=== PATIENT | male | born 1975 | race Caucasian/White ===

== ENCOUNTER 2021-10-22 08:29 | Emergency (ER) | payer OTHER ==
[2021-10-22 09:13] LABS: Absolute Neutrophil Ct (ANC) 6.42 x10^3/uL (1.4-6.9); Basophil (Absolute #) 0.06 x10^3/uL (0-0.4); Eosinophil % 0.8 % (0.00-5.0); Eosinophil (Absolute #) 0.07 x10^3/uL (0-0.5); Hematocrit 48.5 % (42-50); Hemoglobin 16.1 g/dL (12.5-18.0); Lymphocyte (Absolute #) 1.59 x10^3/uL (1.0-4.6); Lymphocytes % 18.4 % (24.0-44.0); Mean Cell Volume 89.2 fL (78-100); Mean Corpuscular Hemoglobin 29.6 pg (26-32); Mean Corpuscular Hgb Concent. 33.2 g/dL (32-36); Mean Platelet Volume 9.8 fL (7.5-11.0); Monocyte (Absolute #) 0.48 x10^3/uL (0.0-1.3); Monocytes % 5.5 % (0.0-12.0); Neutrophil % 74.3 % (36.0-66.0); Platelet Count 328 x10^3/uL (150-450); Red Blood Count 5.44 x10^6/uL (4.1-5.6); Red Cell Distribution Width 12.7 % (11.5-14.0); White Blood Count 8.7 x10^3/uL (4.0-10.5)
[2021-10-22 09:38] LABS: ALBUMIN 4.6 g/dL (3.5-5.0); ALKALINE PHOSPHATASE 100 U/L (38-126); BLOOD UREA NITROGEN 15 mg/dL (9-20); CHLORIDE 103 mmol/L (98-107); Calcium 9.9 mg/dL (8.4-10.2); Carbon Dioxide 27 mmol/L (22-30); EST GLOMERULAR FILTRATION RATE > 60.0 ML/MIN; Glucose 103 mg/dL (74-106); NT PRO BNP 33.3 pg/mL (0-450); Potassium 4.4 mmol/L (3.5-5.1); SGOT/AST 115 U/L (17-59); SGPT/ALT 71 U/L (0-50); SODIUM 140 mmol/L (137-145); Total Protein 8.4 g/dL (6.3-8.2)
--- NOTE | 2021-10-22 09:44 | XRAY ---
Indication: Syncope with right head injury. Multiple contiguous axial images obtained through the head without contrast. Comparison: None Normal appearing brain parenchyma, ventricles, and bony calvarium. Visualized paranasal sinuses and mastoid air cells are clear. Impression: Normal CT head without contrast exam.
--- NOTE | 2021-10-22 09:44 | XRAY ---
Indication: Syncope. Comparison: February 23, 2015 Portable apical lordotic chest hyperinflated and clear with a few new tiny calcified granulomas. Heart not enlarged. Bony thorax intact. Impression: Nonacute hyperinflated chest with old granulomatous disease.
--- NOTE | 2021-10-22 10:00 | ERPHSYRPT ---
- History of Present Illness Source: patient, other (Mother) Exam Limitations: no limitations Patient Subjective Stated Complaint: pt has had 3 syncope episodes this week with the latest being this morning, the episodes began after a change in hisAripiprazoin medication being increased, pt is concerned about his head due to hitting it so many times this time Triage Nursing Assessment: Pt brought to the ER by his mother, vitals wnl, rates head pain as 3 as long as he doesn't touch it, no lumps or bruising noted on head, denies having any other injuries that has led up to the episodes, pulses normal, skin n/w/d, smokes marijuana daily, recovering opiate addict Physician History: 46 yo wm w syncopal episode x 3 over the last week. Pt states that Abilify was increased from 5mg qhs to 10mg qhs 1 week ago also. He had a syncopal episode while letting dog back in the house. Pt denies any symptoms before the episode and is currently alert and oriented x3 w a GCS of 15. He has a mild R parietal RAZA and mild R hip pain. Dyspnea/N/V/chest pain/cough/melena/hematochezia/fever all denied. He does occ smoke marijuana but denies other drug use. Witnessed: by family Prior Episodes: single episode today (3 episodes in last week) Timing/Duration: today Precipitating Factors: none Context: standing Loss of Consciousness: brief (seconds) Charcter of event(s): collapsed, became unresponsive Allergies/Adverse Reactions: Penicillins Allergy (Mild, Verified 10/22/21 09:12) codeine Allergy (Verified 10/22/21 09:12) Home Medications: Aripiprazole 10 mg [Abilify 10 MG] 10 mg PO HS 10/22/21 [History] Tamsulosin HCl 0.4 mg [Flomax 0.4 MG] 0.4 mg PO DAILY 10/22/21 [History] Venlafaxine HCl [Venlafaxine HCl ER] 150 mg PO QAM 10/22/21 [History] Hx Tetanus, Diphtheria Vaccination/Date Given: Yes Hx Influenza Vaccination/Date Given: No Hx Pneumococcal Vaccination/Date Given: No Travel Risk - International Travel Have you traveled outside of the country in past 3 weeks: No - Coronavirus Screening Are you exhibiting any of the following symptoms?: No Close contact with a COVID-19 positive Pt in past 14-21 Days: No - Vaccine Status Have you recieved a Covid-19 vaccination: Yes 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: [employer] - Past Medical History Pertinent Past Medical History: Yes Neurological History: No Pertinent History ENT History: No Pertinent History Cardiac History: No Pertinent History Respiratory History: No Pertinent History Endocrine Medical History: No Pertinent History Musculoskeletal History: Other GI Medical History: No Pertinent History History: No Pertinent History Psycho-Social History: Anxiety, Depression Male Reproductive Disorders: No Pertinent History Other Medical History: SCIATIC NERVE PAIN - Past Surgical History Past Surgical History: Yes Neuro Surgical History: No Pertinent History Cardiac: No Pertinent History Respiratory: No Pertinent History Gastrointestinal: No Pertinent History Genitourinary: No Pertinent History Musculoskeletal: No Pertinent History Male Surgical History: No Pertinent History Other Surgical History: back, hip, rt knee - Social History Smoking Status: Current every day smoker How long have you smoked: 10 yrs Exposure to second hand smoke: Yes Drug Use: marijuana Patient Lives Alone: Yes Significant Family History: no pertinent family hx - Review of Systems Constitutional: No Symptoms Eyes: No Symptoms Ears, Nose, & Throat: No Symptoms Respiratory: No Symptoms Cardiac: No Symptoms Abdominal/Gastrointestinal: No Symptoms Genitourinary Symptoms: No Symptoms Musculoskeletal: No Symptoms Skin: Skin Lesions Neurological: No Symptoms, Headache Psychological: Drug Abuse (Marijuana) Endocrine: No Symptoms Hematologic/Lymphatic: No Symptoms Immunological/Allergic: No Symptoms Physical Exam - Nursing Vital Signs Nursing Vital Signs: Initial Vital Signs Temperature 97.8 F 10/22/21 08:43 Pulse Rate 70 10/22/21 08:43 Respiratory Rate 12 10/22/21 08:43 Blood Pressure 138/86 10/22/21 08:43 O2 Sat by Pulse Oximetry 98 10/22/21 08:43 Pain Scale Pain Intensity 3 Borderline hypertensive - [place] Coma Scale Best Eye Response (Daryl): (4) open spontaneously Best Verbal Response (Daryl): (5) oriented Best Motor Response ([place]): (6) obeys commands Daryl Total: 15 - Physical Exam General Appearance: no apparent distress Eye Exam: bilateral eye: normal inspection, PERRL, EOMI Ears, Nose, Throat Exam: normal ENT inspection, TMs normal, pharynx normal, moist mucous membranes Neck Exam: normal inspection, non-tender, supple, full range of motion, No meningismus, No mass, No Brudzinski, No Kernig's, No carotid bruit Respiratory: normal breath sounds, lungs clear, airway intact, No chest tenderness, No respiratory distress Cardiovascular: regular rate/rhythm, normal heart sounds, normal peripheral pulses, capillary refill <2 sec, No murmur Gastrointestinal: soft, normal bowel sounds, No tenderness Back Exam: normal inspection, normal range of motion, No CVA tenderness, No vertebral tenderness, No rash Extremity Exam: other (Mild R hip TTP) Peripheral Pulses: carotid (R): 2+, carotid (L): 2+ Mental Status: alert, oriented x 3, 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 Exam: normal hearing, normal speech, PERRL, No abnormal eye position, No abnormal gag reflex Coordination/Gait: normal finger to nose, normal gait, normal cerebellar function, negative Romberg's sign Motor/Sensory: no motor deficit, no sensory deficit, no pronator drift, negative Babinski's sign, No pronator drift (R), No pronator drift (L) DTR: bicep (R): 2+, bicep (L): 2+ Skin Exam: normal color, warm, dry, No rash SpO2 Interpretation: normal SpO2: 98 O2 Delivery: Room Air - Course Nursing assessment & vital signs reviewed: Yes EKG Interpreted by Me: RATE (NSR/Rate73/Normal QT-QTc/Tall T waves/No ac) - Radiology Exams Chest X-ray Interpretation: Discussed w/ radiologist (CXR neg per Rad) Pelvis X-ray Interpretation: Discussed w/ radiologist (Pelvis neg per Rad) - CT Exams Head CT Interpretation: Discussed w/radiologist (CT head neg) Ordered Tests: Active Orders 24 hr Category Date Time Status EKG-ER Only STAT Care 10/22/21 08:42 Completed CHEST 1 VIEW (PORTABLE) Stat Exams 10/22/21 09:26 Completed HEAD WITHOUT CONTRAST [CT] Stat Exams 10/22/21 08:44 Completed PELVIS (1 OR 2 VIEWS) Stat Exams 10/22/21 10:06 Completed CBC W DIFF Stat Lab 10/22/21 09:11 Completed CMP Stat Lab 10/22/21 09:11 Completed D-DIMER QUANTITATIVE Stat Lab 10/22/21 09:11 Completed NT PRO BNP Stat Lab 10/22/21 09:11 Completed PROTIME WITH INR Stat Lab 10/22/21 09:11 Completed PTT Stat Lab 10/22/21 09:11 Completed TROPONIN Q4H Lab 10/22/21 09:11 Completed TROPONIN Stat Lab 10/22/21 11:18 Completed UA W/RFX CULTURE Stat Lab 10/22/21 10:00 Completed Urine Triage Profile Stat Lab 10/22/21 10:00 Completed Lab/Rad Data: Laboratory Result Diagrams 10/22/21 09:11 10/22/21 09:11 Laboratory Results 10/22/21 10/22/21 10/22/21 Range/Units 11:18 10:40 10:00 WBC (4.0-10.5) x10^3/uL RBC (4.1-5.6) x10^6/uL Hgb (12.5-18.0) g/dL Hct (42-50) % MCV (78-100) fL MCH (26-32) pg MCHC (32-36) g/dL RDW (11.5-14.0) % Plt Count (150-450) x10^3/uL MPV (7.5-11.0) fL Gran % (36.0-66.0) % Immature Gran % (Auto) (0.00-0.4) % Nucleat RBC Rel Count (0.00-0.1) % Eos # (Auto) (0-0.5) x10^3/uL Immature Gran # (Auto) (0.00-0.03) x10^3u/L Absolute Lymphs (auto) (1.0-4.6) x10^3/uL Absolute Monos (auto) (0.0-1.3) x10^3/uL Absolute Nucleated RBC (0.00-0.01) x10^3u/L Lymphocytes % (24.0-44.0) % Monocytes % (0.0-12.0) % Eosinophils % (0.00-5.0) % Basophils % (0.0-0.4) % Absolute Granulocytes (1.4-6.9) x10^3/uL Basophils # (0-0.4) x10^3/uL D-Dimer (0.0-0.50) mg/L Sodium (137-145) mmol/L Potassium (3.5-5.1) mmol/L Chloride (98-107) mmol/L Carbon Dioxide (22-30) mmol/L Anion Gap (5-15) MEQ/L BUN (9-20) mg/dL Creatinine (0.66-1.25) mg/dL Estimated GFR ML/MIN Glucose (74-106) mg/dL Calcium (8.4-10.2) mg/dL Total Bilirubin (0.2-1.3) mg/dL AST (17-59) U/L ALT (0-50) U/L Alkaline Phosphatase (38-126) U/L Troponin I < 0.012 (0.000-0.034) ng/mL NT-Pro-B Natriuret Pep (0-450) pg/mL Serum Total Protein (6.3-8.2) g/dL Albumin (3.5-5.0) g/dL Urinalys Dipstick Clnc MAIN LAB Urine Color YELLOW (YELLOW) Urine Appearance CLEAR (CLEAR) Urine pH 6.0 (5-6) Ur Specific [place] 1.0120 (1.005-1.025) POC Urine Protein Conf NEGATIVE (Negative) Urine Ketones NEGATIVE (NEGATIVE) Urine Nitrite NEGATIVE (NEGATIVE) Urine Bilirubin NEGATIVE (NEGATIVE) Urine Urobilinogen NORMAL (0-1) mg/dL Urine Leukocytes NEGATIVE (NEGATIVE) Urine WBC (Auto) NONE (0-5) /HPF Urine RBC (Auto) NONE SEEN (0-2) /HPF U Epithel Cells (Auto) NONE (FEW) /HPF Urine Bacteria (Auto) NONE SEEN (NEGATIVE) /HPF Urine RBC NEGATIVE (0-5) Nic/ul Urine Mucus (Auto) SLIGHT (NEGATIVE) /HPF Ur Culture Indicated? NO Urine Glucose NEGATIVE (NEGATIVE) mg/dL Urine Opiates Level (NEGATIVE) Ur Methadone (NEGATIVE) Urine Barbiturates (NEGATIVE) Ur Phencyclidine (PCP) (NEGATIVE) Urine Amphetamine (NEGATIVE) U Benzodiazepine Level (NEGATIVE) Urine Marijuana (THC) (NEGATIVE) Influenza Type A Ag NEGATIVE (NEGATIVE) Influenza Type B Ag NEGATIVE (NEGATIVE) RSV (PCR) NEGATIVE (Negative) SARS-CoV-2 (PCR) NEGATIVE (NEGATIVE) 10/22/21 10/22/21 10/22/21 Range/Units 10:00 09:11 09:11 WBC (4.0-10.5) x10^3/uL RBC (4.1-5.6) x10^6/uL Hgb (12.5-18.0) g/dL Hct (42-50) % MCV (78-100) fL MCH (26-32) pg MCHC (32-36) g/dL RDW (11.5-14.0) % Plt Count (150-450) x10^3/uL MPV (7.5-11.0) fL Gran % (36.0-66.0) % Immature Gran % (Auto) (0.00-0.4) % Nucleat RBC Rel Count (0.00-0.1) % Eos # (Auto) (0-0.5) x10^3/uL Immature Gran # (Auto) (0.00-0.03) x10^3u/L Absolute Lymphs (auto) (1.0-4.6) x10^3/uL Absolute Monos (auto) (0.0-1.3) x10^3/uL Absolute Nucleated RBC (0.00-0.01) x10^3u/L Lymphocytes % (24.0-44.0) % Monocytes % (0.0-12.0) % Eosinophils % (0.00-5.0) % Basophils % (0.0-0.4) % Absolute Granulocytes (1.4-6.9) x10^3/uL Basophils # (0-0.4) x10^3/uL D-Dimer (0.0-0.50) mg/L Sodium (137-145) mmol/L Potassium (3.5-5.1) mmol/L Chloride (98-107) mmol/L Carbon Dioxide (22-30) mmol/L Anion Gap (5-15) MEQ/L BUN (9-20) mg/dL Creatinine (0.66-1.25) mg/dL Estimated GFR ML/MIN Glucose (74-106) mg/dL Calcium (8.4-10.2) mg/dL Total Bilirubin (0.2-1.3) mg/dL AST (17-59) U/L ALT (0-50) U/L Alkaline Phosphatase (38-126) U/L Troponin I < 0.012 (0.000-0.034) ng/mL NT-Pro-B Natriuret Pep (0-450) pg/mL Serum Total Protein (6.3-8.2) g/dL Albumin (3.5-5.0) g/dL Urinalys Dipstick Clnc Urine Color (YELLOW) Urine Appearance (CLEAR) Urine pH (5-6) Ur Specific [place] (1.005-1.025) POC Urine Protein Conf (Negative) Urine Ketones (NEGATIVE) Urine Nitrite (NEGATIVE) Urine Bilirubin (NEGATIVE) Urine Urobilinogen (0-1) mg/dL Urine Leukocytes (NEGATIVE) Urine WBC (Auto) (0-5) /HPF Urine RBC (Auto) (0-2) /HPF U Epithel Cells (Auto) (FEW) /HPF Urine Bacteria (Auto) (NEGATIVE) /HPF Urine RBC (0-5) Nic/ul Urine Mucus (Auto) (NEGATIVE) /HPF Ur Culture Indicated? Urine Glucose (NEGATIVE) mg/dL Urine Opiates Level NEGATIVE (NEGATIVE) Ur Methadone NEGATIVE (NEGATIVE) Urine Barbiturates NEGATIVE (NEGATIVE) Ur Phencyclidine (PCP) NEGATIVE (NEGATIVE) Urine Amphetamine NEGATIVE (NEGATIVE) U Benzodiazepine Level NEGATIVE (NEGATIVE) Urine Marijuana (THC) POSITIVE (NEGATIVE) Influenza Type A Ag (NEGATIVE) Influenza Type B Ag (NEGATIVE) RSV (PCR) (Negative) SARS-CoV-2 (PCR) (NEGATIVE) 10/22/21 10/22/21 Range/Units 09:11 09:11 WBC 8.7 (4.0-10.5) x10^3/uL RBC 5.44 (4.1-5.6) x10^6/uL Hgb 16.1 (12.5-18.0) g/dL Hct 48.5 (42-50) % MCV 89.2 (78-100) fL MCH 29.6 (26-32) pg MCHC 33.2 (32-36) g/dL RDW 12.7 (11.5-14.0) % Plt Count 328 (150-450) x10^3/uL MPV 9.8 (7.5-11.0) fL Gran % 74.3 H (36.0-66.0) % Immature Gran % (Auto) 0.3 (0.00-0.4) % Nucleat RBC Rel Count 0.0 (0.00-0.1) % Eos # (Auto) 0.07 (0-0.5) x10^3/uL Immature Gran # (Auto) 0.03 (0.00-0.03) x10^3u/L Absolute Lymphs (auto) 1.59 (1.0-4.6) x10^3/uL Absolute Monos (auto) 0.48 (0.0-1.3) x10^3/uL Absolute Nucleated RBC 0.00 (0.00-0.01) x10^3u/L Lymphocytes % 18.4 L (24.0-44.0) % Monocytes % 5.5 (0.0-12.0) % Eosinophils % 0.8 (0.00-5.0) % Basophils % 0.7 (0.0-0.4) % Absolute Granulocytes 6.42 (1.4-6.9) x10^3/uL Basophils # 0.06 (0-0.4) x10^3/uL D-Dimer (0.0-0.50) mg/L Sodium 140 (137-145) mmol/L Potassium 4.4 (3.5-5.1) mmol/L Chloride 103 (98-107) mmol/L Carbon Dioxide 27 (22-30) mmol/L Anion Gap 14.0 (5-15) MEQ/L BUN 15 (9-20) mg/dL Creatinine 0.90 (0.66-1.25) mg/dL Estimated GFR > 60.0 ML/MIN Glucose 103 (74-106) mg/dL Calcium 9.9 (8.4-10.2) mg/dL Total Bilirubin 1.70 H (0.2-1.3) mg/dL AST 115 H (17-59) U/L ALT 71 H (0-50) U/L Alkaline Phosphatase 100 (38-126) U/L Troponin I (0.000-0.034) ng/mL NT-Pro-B Natriuret Pep 33.3 (0-450) pg/mL Serum Total Protein 8.4 H (6.3-8.2) g/dL Albumin 4.6 (3.5-5.0) g/dL Urinalys Dipstick Clnc Urine Color (YELLOW) Urine Appearance (CLEAR) Urine pH (5-6) Ur Specific [place] (1.005-1.025) POC Urine Protein Conf (Negative) Urine Ketones (NEGATIVE) Urine Nitrite (NEGATIVE) Urine Bilirubin (NEGATIVE) Urine Urobilinogen (0-1) mg/dL Urine Leukocytes (NEGATIVE) Urine WBC (Auto) (0-5) /HPF Urine RBC (Auto) (0-2) /HPF U Epithel Cells (Auto) (FEW) /HPF Urine Bacteria (Auto) (NEGATIVE) /HPF Urine RBC (0-5) Nic/ul Urine Mucus (Auto) (NEGATIVE) /HPF Ur Culture Indicated? Urine Glucose (NEGATIVE) mg/dL Urine Opiates Level (NEGATIVE) Ur Methadone (NEGATIVE) Urine Barbiturates (NEGATIVE) Ur Phencyclidine (PCP) (NEGATIVE) Urine Amphetamine (NEGATIVE) U Benzodiazepine Level (NEGATIVE) Urine Marijuana (THC) (NEGATIVE) Influenza Type A Ag (NEGATIVE) Influenza Type B Ag (NEGATIVE) RSV (PCR) (Negative) SARS-CoV-2 (PCR) (NEGATIVE) - Progress Progress: improved Progress Note: 10/22/21 12:[address] Turner-wants to send home and wants to keep Abilify dose at 10mg. 10/23/21 00:53 Pt wo syncope/ectopy/focal weakness/altered mental status during entire ER visit Counseled pt/family regarding: lab results, diagnosis, need for follow-up, rad results - Departure Departure Disposition: Home Clinical Impression: Syncope Condition: Stable Critical Care Time: No Referrals: DASHAWN TURNER MD [Primary Care Provider] - Follow up/PCP as directed Instructions: Syncope (Fainting) (DC) Additional Instructions: Follow up with Dr. Turner in 1-2 days Continue with current Abilify dose
--- NOTE | 2021-10-22 10:13 | XRAY ---
Indication: Right hip pain following fall. Comparison: None Single AP pelvis demonstrates normal bones, articulation, and soft tissues.
[2021-10-22 10:19] LABS: Mucus SLIGHT /HPF (NEGATIVE)
[2021-10-22 10:20] LABS: Appearance CLEAR (CLEAR); Bilirubin NEGATIVE (NEGATIVE); Glucose NEGATIVE (NEGATIVE); Ketones NEGATIVE (NEGATIVE); Nitrite NEGATIVE (NEGATIVE); Protein,Urine Dip NEGATIVE (Negative); RBC NEGATIVE Ery/ul (0-5); Urobilinogen NORMAL mg/dL (0-1)
[2021-10-22 10:21] LABS: Bacteria NONE SEEN /HPF (NEGATIVE); RBC NONE SEEN /HPF (0-2); Urine Cultured Indicated? NO
[2021-10-22 10:54] LABS: Dipstick done @ ? MAIN LAB
[2021-10-22 10:56] LABS: Amphetamine,Urine NEGATIVE (NEGATIVE); Barbiturate,Urine NEGATIVE (NEGATIVE); Benzodiazepine,Urine NEGATIVE (NEGATIVE); Methadone,Urine NEGATIVE (NEGATIVE); Opiate,Urine NEGATIVE (NEGATIVE); THC,Urine POSITIVE (NEGATIVE)
[2021-10-22 11:00] LABS: PCP,Urine NEGATIVE (NEGATIVE)
[2021-10-22 11:21] LABS: INFLUENZA A NEGATIVE (NEGATIVE); INFLUENZA B NEGATIVE (NEGATIVE); RESPIRATORY SYNCTIAL VIRUS NEGATIVE (Negative); SARS-CoV-2 Xpert Express NEGATIVE (NEGATIVE)
[2021-10-22 12:36] VITALS: BP 140/86; PULSE 80
[2021-10-23 00:55] VITALS: O2SAT 98
== END 2021-10-22 12:36 | disposition home or self-care (01) ==
LOC: ED 08:29
DX: R55 Syncope and collapse (principal); R51.9 Headache, unspecified; M25.551 Pain in right hip; Z72.0 Tobacco use; Z79.899 Other long term (current) drug therapy
CPT/HCPCS: 0241U; 36000; 36415; 70450; 71045; 72170; 80053; 80074; 80307; 81015; 83880; 84484; 85025; 85379; 85610; 85730; 93005; 99284

== ENCOUNTER 2022-07-08 11:46 | Emergency (ER) | payer OTHER ==
[2022-07-08] MEDS ORDERED: Sodium Chloride 0.9% 1000 ML 1,000 ML IV STA (12:02)
--- NOTE | 2022-07-08 12:02 | ERPHSYRPT ---
- History of Present Illness Time Seen by Provider: 07/08/22 12:00 Source: patient Exam Limitations: no limitations Patient Subjective Stated Complaint: Sycope Triage Nursing Assessment: Patient ambulated back to ED accompanied per [facility] staff. Patient A+O X3. Patient's skin pink, warm and dry. Patient complains of having syncopal episodes since this past Friday. Patient [facility] into [facility] and usually takes Klonopin 0.5mg BID. Patient is unable to have Klonopin in [facility]. Patient states today his eyes started moving real fast then he felt like he was going to pass out. Patient denies pain or discomfort. Patient complains of dizziness. Physician History: This is a 46-year-old white male resident of local [facility] who was brought into the [facility] on 07/01/[facility]22. Since that time he has not been on his Klonopin medication. Patient states that he takes Klonopin 0.5 mg orally twice a day. He states he has had several "near syncopal episodes". Patient does have a history of anxiety and depression. Today, he states his eyes were moving back and forth very rapidly. He also felt that he was "going to pass out". Patient denies chest pain. He denies shortness of breath. He does have dizziness. He does not have abdominal pain. He said no nausea vomiting or diarrhea. He has not had fevers. Timing/Duration: day(s) (Symptoms worsening over several days), worse (To mod erate) Severity: mild Character of Deficits: none Deficits: no difficulties Baseline/Normal Cognition: alert oriented x 3 Current Cognition: alert oriented x 3 Baseline Gait: walks w/o assistance Associated Symptoms: other ([place] as though he was going to pass out), No loss of consciousness, No nausea, No vomiting, No seizures, No chest pain, No headache Allergies/Adverse Reactions: Penicillins Allergy (Mild, Verified 07/08/22 11:47) codeine Allergy (Verified 07/08/22 11:47) Home Medications: Venlafaxine HCl [Venlafaxine HCl ER] 150 mg PO QAM 10/22/21 [History] Nortriptyline HCl [Pamelor] 1 tab PO DAILY 07/08/22 [History] Hx Tetanus, Diphtheria Vaccination/Date Given: Yes Hx Influenza Vaccination/Date Given: No Hx Pneumococcal Vaccination/Date Given: No Immunizations Up to Date: Yes Travel Risk - International Travel Have you traveled outside of the country in past 3 weeks: No - Coronavirus Screening Are you exhibiting any of the following symptoms?: No Close contact with a COVID-19 positive Pt in past 14-21 Days: No - Vaccine Status Have you recieved a Covid-19 vaccination: 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[employer] - Review of Systems Constitutional: No Symptoms Eyes: No Symptoms Ears, Nose, & Throat: No Symptoms Respiratory: No Symptoms Cardiac: No Symptoms Abdominal/Gastrointestinal: No Symptoms Genitourinary Symptoms: No Symptoms Musculoskeletal: No Symptoms Neurological: Dizziness Psychological: Anxiety, Depression Endocrine: No Symptoms Hematologic/Lymphatic: No Symptoms Immunological/Allergic: No Symptoms All Other Systems: Reviewed and Negative - Past Medical History Pertinent Past Medical History: Yes Neurological History: No Pertinent History ENT History: No Pertinent History Cardiac History: No Pertinent History Respiratory History: No Pertinent History Endocrine Medical History: No Pertinent History Musculoskeletal History: Other GI Medical History: No Pertinent History History: No Pertinent History Psycho-Social History: Anxiety, Depression Male Reproductive Disorders: No Pertinent History Other Medical History: SCIATIC NERVE PAIN - Past Surgical History Past Surgical History: Yes Neuro Surgical History: No Pertinent History Cardiac: No Pertinent History Respiratory: No Pertinent History Gastrointestinal: No Pertinent History Genitourinary: No Pertinent History Musculoskeletal: No Pertinent History Male Surgical History: No Pertinent History Other Surgical History: back, hip, rt knee - Social History Smoking Status: Former smoker How long have you smoked: 10 yrs Exposure to second hand smoke: Yes Drug Use: marijuana Patient Lives Alone: No ([facility]) Significant Family History: no pertinent family hx - Nursing Vital Signs Nursing Vital Signs: Initial Vital Signs Temperature 97.4 F 07/08/22 11:50 Pulse Rate 117 H 07/08/22 11:50 Respiratory Rate 20 07/08/22 11:50 Blood Pressure 125/97 07/08/22 11:50 O2 Sat by Pulse Oximetry 100 07/08/22 11:50 Pain Scale Pain Intensity 0 - Daryl Coma Scale Best Eye Response ([place]): (4) open spontaneously Best Verbal Response ([place]): (5) oriented Best Motor Response ([place]): (6) obeys commands [place] Total: 15 - Physical Exam General Appearance: no apparent distress, alert, anxiety Eye Exam: bilateral eye: normal inspection, PERRL, EOMI Ears, Nose, Throat Exam: normal ENT inspection, moist mucous membranes Neck Exam: normal inspection, non-tender, supple, full range of motion Respiratory: normal breath sounds, lungs clear, airway intact, No chest tenderness, No respiratory distress Cardiovascular: normal peripheral pulses, tachycardia Gastrointestinal: soft, normal bowel sounds, No tenderness Rectal Exam: not done Back Exam: normal inspection, normal range of motion, No CVA tenderness, No vertebral tenderness Extremity Exam: normal inspection, normal range of motion, pelvis stable Mental Status: alert, oriented x 3, cooperative vp sales Exam: normal hearing, normal speech, PERRL Coordination/Gait: normal finger to nose, normal gait, normal cerebellar function Skin Exam: normal color, warm, dry SpO2 Interpretation: normal SpO2: 100 O2 Delivery: Room Air - Course Nursing assessment & vital signs reviewed: Yes EKG Interpreted by Me: RATE ([id number]), Sinus Tach, NORMAL INTERVALS, NORMAL QRS, NORMAL ST-T Ordered Tests: Active Orders 24 hr Category Date Time Status Electronic Science Teacher STAT Care 07/08/22 12:03 Active EKG-ER Only STAT Care 07/08/22 12:02 Active IV Insertion STAT Care 07/08/22 12:02 Active Pulse Oximetry (ED) STAT Care 07/08/22 12:02 Active HEAD WITHOUT CONTRAST [CT] Stat Exams 07/08/22 12:02 Completed CBC W DIFF Stat Lab 07/08/22 12:10 Completed CMP Stat Lab 07/08/22 12:10 Completed ETHYL ALCOHOL Stat Lab 07/08/22 12:10 Completed UA W/RFX UR CULTURE Stat Lab 07/08/22 13:59 Completed Urine Triage Profile Stat Lab 07/08/22 13:59 Completed Medication Summary Discontinued Medications Generic Name Dose Route Start Last Admin Trade Name Freq PRN Reason Stop Dose Admin Clonazepam 0.5 mg 07/08/22 14:05 Clonazepam 0.5 Mg Tablet PO 07/08/22 14:06 STAT ONE Sodium Chloride 1,000 mls @ 999 mls/hr 07/08/22 12:02 07/08/22 13:12 Sodium Chloride 0.9% 1000 Ml IV 07/08/22 13:02 Infused .Q1H1M STA Infusion Sodium Chloride Confirm 07/08/22 12:04 Sodium Chloride 0.9% 1000 Ml Administered 04/24/23 12:05 Dose 1,000 mls @ .[facility] ONE Lab/Rad Data: Laboratory Result Diagrams 07/08/22 12:10 07/08/22 12:10 Laboratory Results 07/08/22 07/08/22 07/08/22 Range/Units 13:59 13:59 12:10 WBC (4.0-10.5) x10^3/uL RBC (4.1-5.6) x10^6/uL Hgb (12.5-18.0) g/dL Hct (42-50) % MCV (78-100) fL MCH (26-32) pg MCHC (32-36) g/dL RDW (11.5-14.0) % Plt Count (150-450) x10^3/uL MPV (7.5-11.0) fL Gran % (36.0-66.0) % Immature Gran % (Auto) (0.00-0.4) % Nucleat RBC Rel Count (0.00-0.1) % Eos # (Auto) (0-0.5) x10^3/uL Immature Gran # (Auto) (0.00-0.03) x10^3u/L Absolute Lymphs (auto) (1.0-4.6) x10^3/uL Absolute Monos (auto) (0.0-1.3) x10^3/uL Absolute Nucleated RBC (0.00-0.01) x10^3u/L Lymphocytes % (24.0-44.0) % Monocytes % (0.0-12.0) % Eosinophils % (0.00-5.0) % Basophils % (0.0-0.4) % Absolute Granulocytes (1.4-6.9) x10^3/uL Basophils # (0-0.4) x10^3/uL Sodium 140 (137-145) mmol/L Potassium 4.7 (3.5-5.1) mmol/L Chloride 102 (98-107) mmol/L Carbon Dioxide 29 (22-30) mmol/L Anion Gap 14.2 (5-15) MEQ/L BUN 16 (9-20) mg/dL Creatinine 0.82 (0.66-1.25) mg/dL Estimated GFR > 60.0 ML/MIN Glucose 93 (74-106) mg/dL Calcium 9.6 (8.4-10.2) mg/dL Total Bilirubin 1.90 H (0.2-1.3) mg/dL AST 87 H (17-59) U/L ALT 55 H (0-50) U/L Alkaline Phosphatase 104 (38-126) U/L Serum Total Protein 8.0 (6.3-8.2) g/dL Albumin 4.5 (3.5-5.0) g/dL Urine Color Dark Yellow (Yellow) Urine Appearance Clear (Clear) Urine pH 5.5 (4.6-8.0) Ur Specific Gilbert >=1.030 A (1.005-1.030) Urine Protein Trace A (Negative) Urine Glucose (UA) Negative (Negative) mg/dL Urine Ketones Trace A (Negative) Urine Blood Negative (Negative) Urine Nitrite Negative (Negative) Urine Bilirubin Negative (Negative) Urine Urobilinogen 0.2 (0.2) mg/dL Ur Leukocyte Esterase Negative (Negative) U Hyaline Cast (Auto) 3-5 A (0-2) /LPF Urine Microscopic RBC 0-2 (0-5) /HPF Urine Microscopic WBC 0-2 (0-5) /HPF Ur Epithelial Cells None Seen (None Seen) /HPF Urine Bacteria None Seen (None Seen) /HPF Urine Culture Reflexed NO (NO) Urine Opiates Level NEGATIVE (NEGATIVE) Ur Methadone NEGATIVE (NEGATIVE) Urine Barbiturates NEGATIVE (NEGATIVE) Ur Phencyclidine (PCP) NEGATIVE (NEGATIVE) Urine Amphetamine NEGATIVE (NEGATIVE) U Benzodiazepine Level NEGATIVE (NEGATIVE) Urine Cocaine NEGATIVE (NEGATIVE) Urine Marijuana (THC) POSITIVE (NEGATIVE) Ethyl Alcohol < 10 (0-10) mg/dL 07/08/22 Range/Units 12:10 WBC 9.6 (4.0-10.5) x10^3/uL RBC 5.80 H (4.1-5.6) x10^6/uL Hgb 16.8 (12.5-18.0) g/dL Hct 50.9 H (42-50) % MCV 87.8 (78-100) fL MCH 29.0 (26-32) pg MCHC 33.0 (32-36) g/dL RDW 12.9 (11.5-14.0) % Plt Count 298 (150-450) x10^3/uL MPV 10.5 (7.5-11.0) fL Gran % 77.2 H (36.0-66.0) % Immature Gran % (Auto) 0.1 (0.00-0.4) % Nucleat RBC Rel Count 0.0 (0.00-0.1) % Eos # (Auto) 0.10 (0-0.5) x10^3/uL Immature Gran # (Auto) 0.01 (0.00-0.03) x10^3u/L Absolute Lymphs (auto) 1.42 (1.0-4.6) x10^3/uL Absolute Monos (auto) 0.58 (0.0-1.3) x10^3/uL Absolute Nucleated RBC 0.00 (0.00-0.01) x10^3u/L Lymphocytes % 14.8 L (24.0-44.0) % Monocytes % 6.1 (0.0-12.0) % Eosinophils % 1.0 (0.00-5.0) % Basophils % 0.8 (0.0-0.4) % Absolute Granulocytes 7.39 H (1.4-6.9) x10^3/uL Basophils # 0.08 (0-0.4) x10^3/uL Sodium (137-145) mmol/L Potassium (3.5-5.1) mmol/L Chloride (98-107) mmol/L Carbon Dioxide (22-30) mmol/L Anion Gap (5-15) MEQ/L BUN (9-20) mg/dL Creatinine (0.66-1.25) mg/dL Estimated GFR ML/MIN Glucose (74-106) mg/dL Calcium (8.4-10.2) mg/dL Total Bilirubin (0.2-1.3) mg/dL AST (17-59) U/L ALT (0-50) U/L Alkaline Phosphatase (38-126) U/L Serum Total Protein (6.3-8.2) g/dL Albumin (3.5-5.0) g/dL Urine Color (Yellow) Urine Appearance (Clear) Urine pH (4.6-8.0) Ur Specific [place] (1.005-1.030) Urine Protein (Negative) Urine Glucose (UA) (Negative) mg/dL Urine Ketones (Negative) Urine Blood (Negative) Urine Nitrite (Negative) Urine Bilirubin (Negative) Urine Urobilinogen (0.2) mg/dL Ur Leukocyte Esterase (Negative) U Hyaline Cast (Auto) (0-2) /LPF Urine Microscopic RBC (0-5) /HPF Urine Microscopic WBC (0-5) /HPF Ur Epithelial Cells (None Seen) /HPF Urine Bacteria (None Seen) /HPF Urine Culture Reflexed (NO) Urine Opiates Level (NEGATIVE) Ur Methadone (NEGATIVE) Urine Barbiturates (NEGATIVE) Ur Phencyclidine (PCP) (NEGATIVE) Urine Amphetamine (NEGATIVE) U Benzodiazepine Level (NEGATIVE) Urine Cocaine (NEGATIVE) Urine Marijuana (THC) (NEGATIVE) Ethyl Alcohol (0-10) mg/dL - Progress Progress: improved, re-examined Progress Note: 07/08/22 13:20 CAT scan of the head without contrast shows no acute intracranial abnormality. This patient's medical issue is 1 of moderate complexity. The level of complexity and the work-up performed based on the past medical history, review of the patient's medication list, review of the patient's drug allergy list, history of present illness and physical findings on examination. The work-up includes placement of intravenous line, performing a twelve-lead EKG, urinalysis, urine drug screen, CBC, CMP and infusion of 1 L of normal saline. In addition, we performed a CAT scan of the head without contrast. The results that have returned have been reviewed by me. The urinalysis and urine drug screen results are pending. Counseled pt/family regarding: lab results, diagnosis, need for follow-up, rad results Medical Desision Making - Independent Historian Additional History obtained from: Community Nutrition Educator/EMT - Discussion of managment Agreed on:: Treatment plan, need for follow-up - Social Determinants of Health Pt's dx & treatment plan are significantly limited by SDOH: Unemployed, housing insecurity, homelessness Limited access to: transportation, medical care - Diagnostic Testing Diagnostic test were ordered, analyzed, and reviewed by me: Yes Radiological Interpretation: Reviewed by me, Teleradiologist Report - Departure Departure Disposition: Assisted/Senior Care Clinical Impression: Anxiety about health Condition: Stable Critical Care Time: No Referrals: DASHAWN TURNER MD [Primary Care Provider] - Follow up/PCP as directed Additional Instructions: Take all your medication as prescribed. Follow-up with your primary care provider for further evaluation and management
[2022-07-08] MEDS ORDERED: Sodium Chloride 0.9% 1000 ML 1,000 ML ONE (12:04)
[2022-07-08 12:18] LABS: Absolute Neutrophil Ct (ANC) 7.39 x10^3/uL (1.4-6.9); BASOPHIL % 0.8 % (0.0-0.4); Basophil (Absolute #) 0.08 x10^3/uL (0-0.4); Hematocrit 50.9 % (42-50); Hemoglobin 16.8 g/dL (12.5-18.0); IMMATURE GRAN # 0.01 x10^3u/L (0.00-0.03); IMMATURE GRAN % 0.1 % (0.00-0.4); Lymphocyte (Absolute #) 1.42 x10^3/uL (1.0-4.6); Lymphocytes % 14.8 % (24.0-44.0); Mean Cell Volume 87.8 fL (78-100); Mean Platelet Volume 10.5 fL (7.5-11.0); Monocyte (Absolute #) 0.58 x10^3/uL (0.0-1.3); Monocytes % 6.1 % (0.0-12.0); Neutrophil % 77.2 % (36.0-66.0); Platelet Count 298 x10^3/uL (150-450); Red Cell Distribution Width 12.9 % (11.5-14.0); White Blood Count 9.6 x10^3/uL (4.0-10.5)
[2022-07-08 12:29] LABS: ALBUMIN 4.5 g/dL (3.5-5.0); ALKALINE PHOSPHATASE 104 U/L (38-126); ANION GAP 14.2 MEQ/L (5-15); BLOOD UREA NITROGEN 16 mg/dL (9-20); CHLORIDE 102 mmol/L (98-107); Calcium 9.6 mg/dL (8.4-10.2); Carbon Dioxide 29 mmol/L (22-30); Creatinine 1 0.82 mg/dL (0.66-1.25); EST GLOMERULAR FILTRATION RATE > 60.0 ML/MIN; ETHYL ALCOHOL < 10 mg/dL (0-10); Glucose 93 mg/dL (74-106); Potassium 4.7 mmol/L (3.5-5.1); SGOT/AST 87 U/L (17-59); SGPT/ALT 55 U/L (0-50); SODIUM 140 mmol/L (137-145)
--- NOTE | 2022-07-08 12:50 | XRAY ---
Indication: "Mini seizure" 3 days ago. Multiple contiguous axial images obtained through the head without contrast. Comparison: October 22, 2021 Normal appearing brain parenchyma, ventricles, and bony calvarium. Visualized paranasal sinuses and mastoid air cells are clear. Impression: Continued normal CT head without contrast exam.
[2022-07-08] MEDS ORDERED: clonazePAM PO ONE (14:05)
[2022-07-08 14:10] LABS: ADD URINE CULTURE? NO (NO); Appearance Clear (Clear); Bacteria None Seen /HPF (None Seen); Bilirubin Negative (Negative); Blood Negative (Negative); Epithelial Cells None Seen /HPF (None Seen); Glucose, Urine Negative (Negative); Ketones Trace (Negative); Leukocyte Esterase Negative (Negative); Nitrite Negative (Negative); Ph 5.5 (4.6-8.0); Protein,Urine Dip Trace (Negative); RBC 0-2 /HPF (0-5); Specific Gravity >=1.030 (1.005-1.030); Urobilinogen 0.2 mg/dL (0.2); WBC 0-2 /HPF (0-5)
[2022-07-08 14:21] LABS: Amphetamine,Urine NEGATIVE (NEGATIVE); Barbiturate,Urine NEGATIVE (NEGATIVE); Benzodiazepine,Urine NEGATIVE (NEGATIVE); Cocaine,Urine NEGATIVE (NEGATIVE); Methadone,Urine NEGATIVE (NEGATIVE); Opiate,Urine NEGATIVE (NEGATIVE); PCP,Urine NEGATIVE (NEGATIVE); THC,Urine POSITIVE (NEGATIVE)
[2022-07-08 14:33] VITALS: BP 121/82; PULSE 92; O2SAT 99
== END 2022-07-08 14:37 | disposition home or self-care (01) ==
LOC: ED 11:46
DX: F45.9 Somatoform disorder, unspecified (principal); R55 Syncope and collapse; Z79.899 Other long term (current) drug therapy; Z56.0 Unemployment, unspecified; Z59.00 Homelessness unspecified; Z59.82 Transportation insecurity; Z75.3 Unavailability and inaccessibility of health-care facilities
CPT/HCPCS: 36000; 36415; 70450; 80053; 80307; 81001; 82077; 85025; 93005; 93041; 94760; 99284; A9270-GY

== ENCOUNTER 2023-01-28 11:23 | Emergency (ER) | payer OTHER ==
[2023-01-28 11:41] VITALS: TEMP 97; O2SAT 96
--- NOTE | 2023-01-28 12:06 | XRAY ---
Indication: Pain. No known injury. No known injury. Comparison: September 29, 2021 3 view right shoulder obtained. Again no bony, articular, or soft tissue abnormalities.
--- NOTE | 2023-01-28 12:33 | ERPHSYRPT ---
- History of Present Illness Time Seen by Provider: 01/28/23 11:45 Source: patient Exam Limitations: no limitations Patient Subjective Stated Complaint: Right shoulder pain Triage Nursing Assessment: Patient ambulated back to ED and transferred self to bed. Patient's skin pink, warm and dry. Patient complains of right shoulder pain since Friday. Patient states friday he fell off of a stool and tried to catch himself hurting his right shoulder. Patient complains of pain to right shoulder 10/24. Physician History: Patient is a 47-year-old male presents to our emergency department for evaluation of right shoulder pain. Pain started Friday when he fell off of a stool tried catching himself and injured his right shoulder. Pain described as an ache that is localized. Pain worse with movement and palpation. Pain improved with rest. No other injuries reported. No associated numbness tingling or weakness of the involved extremity. Patient voices no other complaints or concerns at this time. Patient reports that he has a history of right shoulder rotator cuff repair performed on March 2022 Portions of this note were created with voice recognition technology. There may be grammatical, spelling, punctuation or sound alike errors Timing/Duration: day(s) (3 days ago) Severity: moderate Modifying Factors: Improves With: nothing Associated Symptoms: denies symptoms Allergies/Adverse Reactions: Penicillins Allergy (Mild, Verified 01/28/23 11:37) codeine Allergy (Verified 01/28/23 11:37) Home Medications: Venlafaxine HCl [Venlafaxine HCl ER] 150 mg PO QAM 10/22/21 [History] Nortriptyline HCl [Pamelor] 1 tab PO DAILY 07/08/22 [History] Hx Tetanus, Diphtheria Vaccination/Date Given: Yes Hx Influenza Vaccination/Date Given: No Hx Pneumococcal Vaccination/Date Given: No Immunizations Up to Date: Yes Travel Risk - International Travel Have you traveled outside of the country in past 3 weeks: No - Coronavirus Screening Are you exhibiting any of the following symptoms?: No Close contact with a COVID-19 positive Pt in past 14-21 Days: No - Vaccine Status Have you recieved a Covid-19 vaccination: 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[employer] - Review of Systems Constitutional: No Symptoms, No Fever, No Chills Eyes: No Symptoms Ears, Nose, & Throat: No Symptoms Respiratory: No Symptoms, No Cough, No Dyspnea Cardiac: No Symptoms, No Chest Pain, No Edema, No Syncope Abdominal/Gastrointestinal: No Symptoms, No Abdominal Pain, No Nausea, No Vomiting, No Diarrhea Genitourinary Symptoms: No Symptoms, No Dysuria Musculoskeletal: No Symptoms, No Back Pain, No Neck Pain Skin: No Symptoms, No Rash Neurological: No Symptoms, No Dizziness, No Focal Weakness, No Sensory Changes Psychological: No Symptoms Endocrine: No Symptoms Hematologic/Lymphatic: No Symptoms Immunological/Allergic: No Symptoms All Other Systems: Reviewed and Negative - Past Medical History Pertinent Past Medical History: Yes Neurological History: No Pertinent History ENT History: No Pertinent History Cardiac History: No Pertinent History Respiratory History: No Pertinent History Endocrine Medical History: No Pertinent History Musculoskeletal History: Other GI Medical History: No Pertinent History History: No Pertinent History Psycho-Social History: Anxiety, Depression Male Reproductive Disorders: No Pertinent History Other Medical History: SCIATIC NERVE PAIN - Past Surgical History Past Surgical History: Yes Neuro Surgical History: No Pertinent History Cardiac: No Pertinent History Respiratory: No Pertinent History Gastrointestinal: No Pertinent History Genitourinary: No Pertinent History Musculoskeletal: Amputation, Orthopedic Surgery Male Surgical History: No Pertinent History Other Surgical History: back, hip, rt knee, right rotator cuff and bicep repair - Social History Smoking Status: Former smoker How long have you smoked: 10 yrs Exposure to second hand smoke: Yes Drug Use: marijuana Patient Lives Alone: No Significant Family History: no pertinent family hx - Nursing Vital Signs Nursing Vital Signs: Initial Vital Signs Temperature 97.0 F 01/28/23 11:37 Pulse Rate 94 H 01/28/23 11:37 Respiratory Rate 18 01/28/23 11:37 O2 Sat by Pulse Oximetry 96 01/28/23 11:37 Pain Scale Pain Intensity 8 - Physical Exam General Appearance: no apparent distress, alert Eye Exam: PERRL/EOMI, eyes nml inspection Ears, Nose, Throat Exam: normal ENT inspection, TMs normal, pharynx normal, moist mucous membranes Neck Exam: normal inspection, non-tender, supple, full range of motion Respiratory Exam: normal breath sounds, lungs clear, airway intact, No respiratory distress Cardiovascular Exam: regular rate/rhythm, normal heart sounds, normal peripheral pulses Gastrointestinal/Abdomen Exam: soft, normal bowel sounds, No tenderness, No mass Back Exam: normal inspection, normal range of motion, No CVA tenderness, No vertebral tenderness Extremity Exam: normal inspection, normal range of motion, pelvis stable, other (Tenderness to palpation posterior lateral aspect right shoulder. Overlying soft tissue intact. The involved extremity is neurovascular tact distally. Compartments are soft cap refill less than 2 seconds. Pain worse with abduction and external rotation.) Neurologic Exam: alert, oriented x 3, cooperative, normal mood/affect, nml cerebellar function, nml station & gait, sensation nml, No motor deficits Skin Exam: normal color, warm, dry, No rash Lymphatic Exam: No adenopathy SpO2 Interpretation: normal SpO2: 96 O2 Delivery: Room Air - Course Nursing assessment & vital signs reviewed: Yes - Radiology Exams Shoulder X-ray Interpretation: Teleradiologist Report (Negative shoulder x-ray. No fracture dislocations) Ordered Tests: Active Orders 24 hr Category Date Time Status SHOULDER Stat Exams 01/28/23 11:36 Completed Medication Summary Discontinued Medications Generic Name Dose Route Start Last Admin Trade Name Freq PRN Reason Stop Dose Admin Ketorolac Tromethamine 30 mg 01/28/23 12:32 Ketorolac Tromethamine 30 Mg/Ml Inj IM 01/28/23 12:33 STAT ONE - Progress Progress: improved Progress Note: 47-year-old male presents to our ED with right shoulder pain. Patient had a rotator cuff repair in March 2022. Patient fell off of a stool and injured his right shoulder. X-ray negative. Physical exam reveals some tenderness to the posterior lateral shoulder pain with AB duction and external rotation. The involved extremity is neurovascular tact distally. Compartments are soft cap refill less than 2 seconds. Patient received IM Toradol for pain control. Right upper extremity shoulder sling applied. A referral to the orthopedic clinic provided as well. Patient voices no other complaints or concerns at this time. Portions of this note were created with voice recognition technology. There may be grammatical, spelling, punctuation or sound alike errors Complexity problem addressed is low acute uncomplicated No critical care time Complex of data reviewed and analyzed is moderate. Test ordered test reviewed. Results analyzed and correlated clinically with history and physical examination. Risk of complication and a risk of morbidity/mortality of patient management is moderate. A prescription for Toradol forwarded to patient's pharmacy. A right upper extremity shoulder sling applied. Vital stable. Time spent to discharge patient is approximately 15 minutes. Plan of care established for shared decision making. No social determinants of health present impede follow-up. Patient will follow-up with orthopedic clinic tomorrow as advised. Portions of this note were created with voice recognition technology. There may be grammatical, spelling, punctuation or sound alike errors 01/28/23 12:38 Counseled pt/family regarding: diagnosis, need for follow-up, rad results - Departure Departure Disposition: Home Clinical Impression: Shoulder pain, Shoulder strain Condition: Stable Critical Care Time: No Referrals: DASHAWN TURNER MD [Primary Care Provider] - Follow up/PCP as directed Additional Instructions: Discharge/Care Plan NIKKI ADAIR was seen on 01/28/23 in the Emergency Room. The patient was counseled regarding Diagnosis,Lab results, Imaging studies, need for follow up and when to return to the Emergency Room. Prescriptions given: Discharge Note I have spoken with the patient and/or caregivers. I have explained the patient's condition, diagnosis and treatment plan based on the information available to me at this time. I have answered the patient's and/or caregiver's questions and addressed any concerns. The patient and/or caregivers have as good understanding of the patient's diagnosis, condition and treatment plan as can be expected at this point. The vital signs have been stable. The patient's condition is stable and appropriate for discharge from the emergency department. The patient will pursue further outpatient evaluation with the primary care physician or other designated or consulting physician as outlined in the discharge instructions. The patient and/or caregivers are agreeable to this plan of care and follow-up instructions have been explained in detail. The patient and/or caregivers have received these instruction. The patient/and or caregivers are aware that any significant change in condition or worsening of symptoms should prompt an immediate return to this or the closest emergency department or call 911. Prescriptions: Ketorolac Trometh 10 mg Tab [TORAdol 10 MG TABLET] 10 mg PO TID 5 Days #15 tablet Outpatient Orders: Ortho Referral Time Frame: 1 Day, Facility: [facility], Location: ORTHO CLINIC
[2023-01-28] MEDS ORDERED: TORAdol 30 mg Injection ONE (12:34)
[2023-01-28] MEDS: TORAdol 30 mg Injection IM ONE (12:35)
[2023-01-28 12:39] VITALS: BP 140/80; PULSE 99; RESP 20
== END 2023-01-28 12:58 | disposition home or self-care (01) ==
LOC: ED 11:23
DX: S46.911A Strain of unspecified muscle, fascia and tendon at shoulder and upper arm level, right arm, initial encounter (principal); W07.XXXA Fall from chair, initial encounter; M25.511 Pain in right shoulder; Z79.899 Other long term (current) drug therapy
CPT/HCPCS: 73030; 96372; 99283; J1885

== ENCOUNTER 2023-09-20 15:38 | Emergency (ER) | payer BC, OTHER ==
[2023-09-20 16:20] VITALS: O2SAT 97
--- NOTE | 2023-09-20 16:36 | ERPHSYRPT ---
- History of Present Illness Source: patient Exam Limitations: no limitations Patient Subjective Stated Complaint: fell off of a ladder Triage Nursing Assessment: patient was helping a friend with roof work and fell off of a 4 ft ladder. he said he was standing on top of ladder. he was able to flip around mid fall and land on his front side. c/o of right wrist pain. it appears to be moderately swollen. has laceration to chin. no neck, back or pelvic pain. Occurred: just prior to arrival Reason for Fall: fell from height Injuries/Pain Location: face, upper extremity Loss of Consciousness: no loss of consciousness Quality: sharpness Severity of Pain-Max: moderate Severity of Pain-Current: moderate Modifying Factors: Improves With: nothing Associated Symptoms (Fall): denies symptoms Hx Tetanus, Diphtheria Vaccination/Date Given: Yes Hx Influenza Vaccination/Date Given: No Hx Pneumococcal Vaccination/Date Given: No <LACHELLE BUCKNER - Last Filed: 09/20/23 19:14> <MICHAEL GUERRA - Last Filed: 09/22/23 00:53> - History of Present Illness Time Seen by Provider: 09/20/23 16:30 Physician History: 48yo m presents via private vehicle for right arm and wrist pain. Pt states he fell off the top of a 4 foot tall ladder and landed on his outstretched hands, also hit his chin on the concrete. Pt reports his most significant pain is in the right wrist. Pt denies any RAZA or vision changes, does have laceration on chin. Pt is not on blood thinners, denies pain in neck or midline spine, has no other complaints of pain outside of right UE. Pt ambulated into ED w/o difficulty. Pt does not believe he has had a tdap vaccine in the past 10yrs. (LACHELLE BUCKNER) Allergies/Adverse Reactions: Penicillins Allergy (Mild, Verified 09/20/23 16:19) codeine Allergy (Verified 09/20/23 16:19) Home Medications: Venlafaxine HCl [Venlafaxine HCl ER] 150 mg PO QAM 10/22/21 [History] Nortriptyline HCl [Pamelor] 1 tab PO DAILY 07/08/22 [History] Travel Risk - International Travel Have you traveled outside of the country in past 3 weeks: No - Emerging Infectious Disease Are you exhibiting symptoms associated with any current EIDs: No <LACHELLE BUCKNER - Last Filed: 09/20/23 19:14> - Review of Systems Constitutional: No Symptoms Respiratory: No Symptoms Cardiac: No Symptoms Musculoskeletal: Injury (wrist pain right) Skin: Other (laceration of chin) <LACHELLE BUCKNER - Last Filed: 09/20/23 19:14> - Past Medical History Pertinent Past Medical History: No Neurological History: No Pertinent History ENT History: No Pertinent History Cardiac History: No Pertinent History Respiratory History: No Pertinent History Endocrine Medical History: No Pertinent History Musculoskeletal History: Other GI Medical History: No Pertinent History History: No Pertinent History Psycho-Social History: Anxiety, Bipolar, Depression Male Reproductive Disorders: No Pertinent History, Prostate Problems Other Medical History: SCIATIC NERVE PAIN - Past Surgical History Past Surgical History: Yes Neuro Surgical History: No Pertinent History Cardiac: No Pertinent History Respiratory: No Pertinent History Gastrointestinal: No Pertinent History Genitourinary: No Pertinent History Musculoskeletal: Orthopedic Surgery Male Surgical History: No Pertinent History Other Surgical History: back, hip, rt knee, right rotator cuff and bicep repair Significant Family History: no pertinent family hx - Social History Smoking Status: Former smoker How long have you smoked: 10 yrs Exposure to second hand smoke: Yes Drug Use: marijuana Patient Lives Alone: No <LACHELLE BUCKNER - Last Filed: 09/20/23 19:14> - Sparks Coma Score Best Eye Response (Daryl): (4) open spontaneously Best Verbal Response (Sparks): (5) oriented Best Motor Response (Daryl): (6) obeys commands Daryl Total: 15 - Physical Exam General Appearance: no apparent distress, alert Head Injury: lacerations (right submandibular laceration 2.5cm, linear, small amount of blood present, 5mm depth) Eye Exam: PERRL/EOMI, eyes nml inspection ENT Exam: airway nml, No evidence of ENT injury Neck Exam: supple, trachea midline, full range of motion, No tenderness, No mid- line tenderness Respiratory/Chest Exam: normal breath sounds, No chest tenderness, No respiratory distress Cardiovascular Exam: normal heart sounds, regular rate/rhythm Back Exam: normal inspection Extremity Exam: joint swelling, evidence of injury, other (visible deformity of right wrist, edema of wrist and distal forearm, right UE neurovascularly intact, ROM of wrist and hand limited 2/2 pain, able to move all fingers on right hand) Neurologic Exam: alert, oriented x 3, cooperative, bed teacher II-XII nml as tested, normal mood/affect Skin Exam: normal color, warm, dry, laceration (laceration submandibular, 2.5cm linear, depth of 5mm) SpO2 Interpretation: normal SpO2: 97 O2 Delivery: Room Air <LACHELLE BUCKNER - Last Filed: 09/20/23 19:14> - Nursing Vital Signs Nursing Vital Signs: Initial Vital Signs Respiratory Rate 16 09/20/23 16:10 Blood Pressure 126/93 09/20/23 16:10 O2 Sat by Pulse Oximetry 97 09/20/23 16:10 Pain Scale Pain Intensity 7 Procedures - Laceration/Wound Repair Jaw Time of Procedure: 19:30 Wound Location: face (chin) Wound Length (cm): 4 Wound's Depth, Shape: into muscle, linear Wound Explored: contaminated Irrigated: Yes Hibiclens Prep: Yes Anesthesia: 1% lidocaine w/ Epi Volume Anesthetic (ccs): 6 Wound Debrided: moderate Wound Repaired With: sutures Suture Size/Type: 4-0, prolene Number of Sutures: 5 Layer Closure?: Yes Deep Layer Suture Size/Type: 3:0 (vicryl) Number Deep Layer Sutures: 5 Sterile Dressing Applied?: Yes <MICHAEL GUERRA - Last Filed: 09/22/23 00:53> - Course Nursing assessment & vital signs reviewed: Yes <MICHAEL GUERRA - Last Filed: 09/22/23 00:53> Ordered Tests: Medication Summary Discontinued Medications Generic Name Dose Route Start Last Admin Trade Name Stacey PRN Reason Stop Dose Admin Hydrocodone Bitart/Acetaminophen 1 tab 09/20/23 16:33 09/20/23 16:40 Hydrocodone/Apap 5/325 1 Tab Tablet PO 09/20/23 16:34 1 tab STAT ONE Administration Hydrocodone Bitart/Acetaminophen Confirm 09/20/23 16:38 Hydrocodone/Apap 5/325 1 Tab Tablet Administered 09/20/23 16:39 Dose 1 tab .ROUTE .STK-MED ONE Hydrocodone Bitart/Acetaminophen 2 tab 09/20/23 20:19 09/20/23 20:25 Hydrocodone/Apap 5/325 1 Tab Tablet PO 09/20/23 20:20 2 tab SENT HOME W/ PATIENT ONE Administration Hydrocodone Bitart/Acetaminophen 1 tab 09/20/23 20:19 09/20/23 20:24 Hydrocodone/Apap 5/325 1 Tab Tablet PO 09/20/23 20:20 1 tab STAT ONE Administration Hydrocodone Bitart/Acetaminophen Confirm 09/20/23 20:23 Hydrocodone/Apap 5/325 1 Tab Tablet Administered 09/20/23 20:24 Dose 3 tab .ROUTE .STK-MED ONE Bacitracin Zinc Confirm 09/20/23 20:07 Bacitracin Packet 1 Each Pckt Administered 09/20/23 20:08 Dose 1 each .ROUTE .STK-MED ONE Bacitracin Zinc 0.9 each 09/20/23 20:08 09/20/23 20:10 Bacitracin Packet 1 Each Pckt TP 09/20/23 20:09 0.9 each STAT ONE Administration Diphtheria/Tetanus/Acell Pertussis 0.5 ml 09/20/23 18:08 09/20/23 18:11 Tdap --Diph,Pertuss(Acell),Tet Vac/Pf 0.5 Ml Vial IM 09/20/23 18:09 0.5 ml .ONCE ONE Administration Diphtheria/Tetanus/Acell Pertussis Confirm 09/20/23 18:11 Tdap --Diph,Pertuss(Acell),Tet Vac/Pf 0.5 Ml Vial Administered 09/20/23 18:12 Dose 0.5 ml IM .STK-MED ONE Lidocaine/Epinephrine 5 ml 09/20/23 19:22 09/20/23 19:27 Lidocaine Hcl/Epinephrine 1% 20 Ml IJ 09/20/23 19:23 5 ml STAT ONE Administration - Progress Progress: improved, re-examined <LACHELLE BUCKNER - Last Filed: 09/20/23 19:14> - Progress Counseled pt/family regarding: diagnosis, need for follow-up <MICHAEL GUERRA - Last Filed: 09/22/23 00:53> - Progress Progress Note: 09/20/23 19:05 XR right wrist A comminuted fracture is seen involving the distal radius bone reaching the articular margin with dorsal angulation consistent with Box fracture. Fracture of the styloid process of the distal ulna with associated surrounding soft tissue edema. no other acute abnormalities on CT head/neck or UE imaging C spine cleared - C collar removed will call orthopedics to discuss wrist fx - message left w/ Dr Weaver plan for dc home w/ orthoglass splint, instructed to follow up w/ orthopedics on 09/21 at walk-in clinic pt will need laceration of chin repaired Dr Guerra to assume care of pt at 1900 (LACHELLE BUCKNER) Medical Desision Making - Diagnostic Testing Diagnostic test were ordered, analyzed, and reviewed by me: No - Risk of complications The pt has a mod risk of morbidity or mortality based on: Need for prescription drug management <MICHAEL GUERRA - Last Filed: 09/22/23 00:53> - Departure Critical Care Time: No <LACHELLE BUCKNER - Last Filed: 09/20/23 19:14> - Departure Departure Disposition: Home <MICHAEL GUERRA - Last Filed: 09/22/23 00:53> - Departure Clinical Impression: Complex laceration of chin Fracture of right wrist Qualifiers: Encounter type: initial encounter Fracture type: closed Qualified Code(s): S62.101A - Fracture of unspecified carpal bone, right wrist, initial encounter for closed fracture Condition: Stable Referrals: DASHAWN TURNER MD [Primary Care Provider] - Follow up/PCP as directed Instructions: Laceration Repair With Stitches ED Prescriptions: Hydrocodone/Acetaminophen [Hydrocodone-Acetamin 5-325 mg] 1 tab PO Q4HPRN PRN 3 Days #18 tablet MDD 6 PRN Reason: Pain
[2023-09-20] MEDS ORDERED: NORCO 5/325 MG ONE ×2 (16:38→20:23)
[2023-09-20] MEDS: NORCO 5/325 MG PO ONE ×3 (16:40→20:25)
[2023-09-20] MEDS: Adacel Vial IM ONE (18:11)
[2023-09-20] MEDS ORDERED: Adacel Vial IM ONE (18:11)
--- NOTE | 2023-09-20 18:38 | XRAY ---
CLINICAL HISTORY: fall from height COMPARISON: None TECHNIQUE: X-ray of wrist; AP, oblique and lateral views. FINDINGS: A comminuted fracture is seen involving the distal radius bone reaching to the articular margin with dorsal angulation Representing Box fracture. Fracture of the styloid process of distal ulna with associated surrounding soft tissue edema. Surrounding soft tissue is noted. Bone density is within normal limits. The intercarpal and carpometacarpal joints are well maintained. A radiological examination of the wrist demonstrates no focal bony lesion. No bone erosion was noted. IMPRESSION: A comminuted fracture is seen involving the distal radius bone reaching the articular margin with dorsal angulation consistent with Box fracture. Fracture of the styloid process of the distal ulna with associated surrounding soft tissue edema. (Disclaimer: "A subtle bone abnormality or fracture may not be readily apparent on x-rays, thus clinical correlation and further imaging including follow-up CT, MRI, or follow-up x-rays are advised as needed"). [facility] ER was called at [phone] at 5:30 PM COMMERCIAL REAL ESTATE MANAGER, 09/20/[address] Chavez was informed about the medical findings. Electronically Signed by: Lalitha Price MD. (09/20/2023 18:34:13 EDT)
--- NOTE | 2023-09-20 18:38 | XRAY ---
CLINICAL HISTORY: fall COMPARISON: None TECHNIQUE: X-ray hand oblique and lateral views. FINDINGS: Comminuted fracture is seen involving the distal raduis bone reaching to the articular margin with dorsal angulation Represent Box fracture. Fracture of styloid process of the distal ulna. Surrounding soft tissue is noted The intercarpal, carpometacarpal, metacarpophalangeal and interphalangeal joints are well maintained. Bone density is within normal limits. IMPRESSION: A comminuted fracture is seen involving the distal radius bone reaching the articular margin with dorsal angulation consistent with Box fracture. Fracture of styloid process of the distal ulna. (Disclaimer: "A subtle bone abnormality or fracture may not be readily apparent on x-rays, thus clinical correlation and further imaging including follow-up CT, MRI or follow up x-rays are advised as needed"). [facility] ER was called at [phone] at 5:30 PM BUILDING PRINCIPAL, 09/20/[address] Chavez was informed about the medical findings.. Electronically Signed by: Lalitha Price MD. (09/20/2023 18:32:54 EDT)
--- NOTE | 2023-09-20 18:42 | XRAY ---
CLINICAL HISTORY: fall from height COMPARISON: None TECHNIQUE: X-ray of shoulder, AP/external and internal rotation 2 views. FINDINGS: No evidence of fracture or dislocation noted. Normal bone density seen. Normal articulation and joint spaces seen. IMPRESSION: No acute osseous abnormality. No other significant abnormality. DISCLAIMER:A subtle bone abnormality or fracture may not be readily apparent on x-rays, thus clinical correlation and further imaging including follow up CT, MRI, or follow up x-rays are advised as needed Electronically Signed by: Lalitha Price MD. (09/20/2023 18:37:48 EDT)
--- NOTE | 2023-09-20 18:47 | XRAY ---
CLINICAL HISTORY: fall from 4 foot ladder COMPARISON: None. TECHNIQUE: Axial non contrast enhanced CT scan of the brain was performed from the skull base to the high parietal region. Coronal and sagittal reconstructions were also obtained. One of the following dose reduction techniques was utilized for this exam.Automated exposure control, adjustment of the mA and/or kV according to patient size, and use of iterative reconstruction. FINDINGS: The visualized brain parenchyma shows a normal appearance. No focal parenchymal abnormalities are demonstrated. Wong-white matter differentiation is maintained. No midline shifts or deformity. No intracerebral or extra axial hematoma. Normal size and configuration of the cerebral ventricles. Normal CT appearance of the posterior fossa structures namely the cerebellar hemispheres, brainstem and cerebellar peduncles. The IACs are unremarkable. The cerebello-pontine angles are clear. The pituitary gland, the pineal gland, the optic chiasm are unremarkable. The osseous structures in the skull base are unremarkable. No definite calvarium fractures. Scanned paranasal sinuses are clear. IMPRESSION: Unremarkable CT study for the brain. Electronically Signed by: Lalitha Price MD. (09/20/2023 18:44:16 EDT)
--- NOTE | 2023-09-20 18:58 | XRAY ---
CLINICAL HISTORY: fall from 4 foot ladder COMPARISON: None TECHNIQUE: Thin axial CT of the cervical spine was performed with sagittal and coronal reconstructions without contrast. One of the following dose reduction techniques was utilized for this exam.Automated exposure control, adjustment of the mA and/or kV according to patient size, and use of iterative reconstruction. FINDINGS: Alignment and osseous structures.Flattened cervical curve due to muscle spasm. The vertebral bodies are normal in height. No lytic or sclerotic bone lesion. The craniovertebral measures are unremarkable. Degenerative changes of the cervical spines with multilevel degenerative disc more at C6-7 level as reduced intervertebral disc heights and multilevel osteophytes. Mild bilateral neural foraminal narrowing is seen at C6-C7 level. No fracture lines, no displacment. No soft tissue swelling. Degenerative changes of the right TMJ. Cuts of the upper lung are unremarkable. IMPRESSION: No Acute osseous abnormality. Mild cervical spondylosis and right temporomandibular joint osteoarthritic changes. Electronically Signed by: Lalitha Price MD. (09/20/2023 18:54:05 EDT)
--- NOTE | 2023-09-20 19:02 | XRAY ---
CLINICAL HISTORY: fall from 4ft ladder COMPARISON: None. TECHNIQUE: X-rays of the right elbow joint was performed in 3 views: AP, lateral & oblique projections. FINDINGS: No evidence of acute fracture is seen. Normal bones. Normal joints. No neoplastic mass. No lytic or sclerosis bone lesion. Small olcranone spur with small soft tissue swelling at posterior aspect of the elbow joint suggesting small bursitis. IMPRESSION: No acute osseous injury. DISCLAIMER:A subtle bone abnormality or fracture may not be readily apparent on x-rays, thus clinical correlation and further imaging including follow up CT, MRI, or follow up x-rays are advised as needed. Electronically Signed by: Lalitha Price MD. (09/20/2023 18:57:35 EDT)
[2023-09-20] MEDS: XYLOCAINE 1%/Epi 1:100000 MDV 20 ML IJ ONE (19:27)
[2023-09-20] MEDS ORDERED: BACIGUENT PACKET ONE (20:07)
[2023-09-20] MEDS: BACIGUENT PACKET TP ONE (20:10)
[2023-09-20 20:21] VITALS: BP 124/94; PULSE 88; RESP 17
== END 2023-09-20 20:45 | disposition home or self-care (01) ==
LOC: ED 15:38
DX: S52.561A Barton's fracture of right radius, initial encounter for closed fracture (principal); S52.611A Displaced fracture of right ulna styloid process, initial encounter for closed fracture; S01.81XA Laceration without foreign body of other part of head, initial encounter; W11.XXXA Fall on and from ladder, initial encounter; Y93.H3 Activity, building and construction; Z79.899 Other long term (current) drug therapy; Z23 Encounter for immunization
CPT/HCPCS: 12052; 70450; 72125; 73030; 73080; 73110; 73130; 90471; 90715; 99284; A9270-GY

== ENCOUNTER 2024-02-15 10:46 | Emergency (ER) | payer BC, OTHER ==
[2024-02-15 10:57] VITALS: TEMP 97
[2024-02-15] MEDS ORDERED: Norflex 60 MG/2 ML ONE (11:24)
[2024-02-15] MEDS ORDERED: TORAdol 30 mg Injection ONE (11:24)
[2024-02-15 11:25] VITALS: RESP 16; O2SAT 94
[2024-02-15] MEDS: Norflex 60 MG/2 ML IM ONE (11:26)
[2024-02-15] MEDS: TORAdol 30 mg Injection IM ONE (11:26)
--- NOTE | 2024-02-15 11:37 | ERPHSYRPT ---
- History of Present Illness Time Seen by Provider: 02/15/24 11:35 Source: patient Exam Limitations: no limitations Patient Subjective Stated Complaint: pt here for pain to lower right back after lifting a boat up on a tailer hitch Triage Nursing Assessment: pt alert, walked in, resp easy, skin w/d/p. moves all ext well, no edema noted, Physician History: Patient is 48-year-old male with significant past medical history of recurrent back pain and neck pain was lifting his boat from the hitch and suddenly he developed right sided back pain which was radiating to his right thigh and leg associated with difficulty in walking. He denies any other symptoms. Patient has a recurrent longstanding back problem for which patient has underwent extensive evaluation did not reveal any significant findings. Timing/Duration: today Method of Injury: lifting Quality: sharp, stabbing Back Pain Location: lumbar spine Back Pain Radiation: buttocks, upper legs, lower legs Severity of Pain-Max: moderate Severity of Pain-Current: moderate Modifying Factors: Improves With: nothing Associated Symptoms: denies symptoms Previous symptoms: same symptoms as today Allergies/Adverse Reactions: Penicillins Allergy (Mild, Verified 02/15/24 10:55) codeine Allergy (Verified 02/15/24 10:55) Hx Tetanus, Diphtheria Vaccination/Date Given: No Hx Influenza Vaccination/Date Given: No Hx Pneumococcal Vaccination/Date Given: No Immunizations Up to Date: Yes Travel Risk - International Travel Have you traveled outside of the country in past 3 weeks: No - Emerging Infectious Disease Are you exhibiting symptoms associated with any current EIDs: No - Review of Systems Constitutional: No Fever, No Chills Eyes: No Symptoms Ears, Nose, & Throat: No Symptoms Respiratory: No Cough, No Dyspnea Cardiac: No Chest Pain, No Edema, No Syncope Abdominal/Gastrointestinal: No Abdominal Pain, No Nausea, No Vomiting, No Diarrhea Genitourinary Symptoms: No Dysuria Musculoskeletal: Back Pain, No Neck Pain Skin: No Rash Neurological: No Dizziness, No Focal Weakness, No Sensory Changes Psychological: No Symptoms Endocrine: No Symptoms All Other Systems: Reviewed and Negative - Past Medical History Pertinent Past Medical History: No Neurological History: No Pertinent History ENT History: No Pertinent History Cardiac History: No Pertinent History Respiratory History: No Pertinent History Endocrine Medical History: No Pertinent History Musculoskeletal History: Other GI Medical History: No Pertinent History History: No Pertinent History Psycho-Social History: Anxiety, Bipolar, Depression Male Reproductive Disorders: No Pertinent History, Prostate Problems Other Medical History: SCIATIC NERVE PAIN - Past Surgical History Past Surgical History: Yes Neuro Surgical History: No Pertinent History Cardiac: No Pertinent History Respiratory: No Pertinent History Gastrointestinal: No Pertinent History Genitourinary: No Pertinent History Musculoskeletal: Orthopedic Surgery Male Surgical History: No Pertinent History Other Surgical History: back, hip, rt knee, right rotator cuff and bicep repair Significant Family History: no pertinent family hx - Social History Smoking Status: Former smoker How long have you smoked: 10 yrs Exposure to second hand smoke: Yes Drug Use: marijuana Patient Lives Alone: No - Social Determinants of Health Will the patient participate in the screening: Declined to provide - Nursing Vital Signs Nursing Vital Signs: Initial Vital Signs Temperature 97.0 F 02/15/24 10:56 Pulse Rate 105 H 02/15/24 10:56 Respiratory Rate 18 02/15/24 10:56 Blood Pressure 130/85 02/15/24 10:56 O2 Sat by Pulse Oximetry 98 02/15/24 10:56 Pain Scale Pain Intensity [] 7 Pain Intensity 7 - Physical Exam General Appearance: no apparent distress, alert Eye Exam: PERRL/EOMI, eyes nml inspection Neck Exam: normal inspection, non-tender, supple, full range of motion, No meningismus, No midline tenderness Respiratory Exam: normal breath sounds, lungs clear, No respiratory distress Cardiovascular Exam: regular rate/rhythm, normal heart sounds Gastrointestinal Exam: soft, No tenderness, No mass Back Exam: normal inspection, vertebral tenderness, decreased range of motion, muscle spasm, point tenderness Extremity Exam: normal inspection, normal range of motion, No calf tenderness, No pedal edema Peripheral Pulses: carotid (R): 2+, carotid (L): 2+, femoral (R): 2+, femoral (L): 2+, dorsalis-pedis (R): 2+, dorsalis-pedis (L): 2+ Neurologic Exam: alert, oriented x 3, cooperative, doctor of osteopathy II-XII nml as tested, normal mood/affect, nml station & gait, sensation nml, No motor deficits Skin Exam: normal color, warm, dry, No rash SpO2 Interpretation: normal SpO2: 94 O2 Delivery: Room Air - Course Nursing assessment & vital signs reviewed: Yes - CT Exams Lumbar Spine CT Interpretation: Tele-radiologist Report Ordered Tests: Active Orders 24 hr Category Date Time Status LUMBAR SPINE W/O [CT] Stat Exams 02/15/24 11:54 Completed Medication Summary Discontinued Medications Generic Name Dose Route Start Last Admin Trade Name Stacey PRN Reason Stop Dose Admin Ketorolac Tromethamine 60 mg 02/15/24 11:12 02/15/24 11:26 Ketorolac Tromethamine 30 Mg/Ml Inj IM 02/15/24 11:13 60 mg STAT ONE Administration Ketorolac Tromethamine Confirm 02/15/24 11:24 Ketorolac Tromethamine 30 Mg/Ml Inj Administered 02/15/24 11:25 Dose 60 mg .ROUTE .STK-MED ONE Orphenadrine Citrate 60 mg 02/15/24 11:12 02/15/24 11:26 Orphenadrine Citrate 60 Mg/2 Ml Vial IM 02/15/24 11:13 60 mg STAT ONE Administration Orphenadrine Citrate Confirm 02/15/24 11:24 Orphenadrine Citrate 60 Mg/2 Ml Vial Administered 02/15/24 11:25 Dose 60 mg .ROUTE .STK-MED ONE Lab/Rad Data: LINICAL HISTORY: sudden onset of low back pain COMPARISON: None. TECHNIQUE: CT non-contrast scan of lumbar spine done. Axial images were obtained with reformatted coronal and sagittal images and submitted for interpretation. One of the following dose reduction techniques were utilized for this exam: Automated exposure control, adjustment of the mA and/or kV according to patient size, and use of iterative reconstruction. DLP: 407.61 mGy-cm. FINDINGS: Vertebrae: Mild lumbar spondylodegenerative changes with anterolateral marginal osteophytosis. Mild 4 mm retrolisthesis of L4 over L5 No fractures, lytic or sclerotic lesions. Normal bone density without evidence of osteopenia or osteoporosis. Intervertebral Discs: Decreased height of L5-S1 intervertebral disc with irregular vertebral end plates. L4-L5 posterior disc bulge indenting theca and encroaching upon both exit foramina L5-S1 diffuse posterior disc bulge indenting theca and encroaching upon both exit foramina Facet Joints: L4-L5 and L5-S1 facet arthropathy. PatientID: [id number] Patient Name: NIKKI ADAIR Exam Date: 02/15/2024 Procedure: LUMBAR SPINE W/O page 1 of 2 Soft Tissues: Normal appearance of the paraspinal soft tissues. Vascular atherosclerotic calcifications. Small right renal non-obstructing calculus. IMPRESSION: 1. Mild lumbar spondylodegenerative changes with anterolateral marginal osteophytosis. 2. Mild 4 mm retrolisthesis of L4 over L5. 3. L4-L5 posterior disc bulge indenting theca and encroaching upon both exit foramina. 4. L5-S1 diffuse posterior disc bulge indenting theca and encroaching upon both exit foramina. 5. L4-L5 and L5-S1 facet arthropathy. - Progress Progress: improved, pain not gone completely Counseled pt/family regarding: diagnosis, need for follow-up, rad results Medical Desision Making - Diagnostic Testing Diagnostic test were ordered, analyzed, and reviewed by me: Yes Radiological Interpretation: Teleradiologist Report - Risk of complications Low Risk: Low risk of morbidity from additional dx testing or treatment - Departure Departure Disposition: Home Clinical Impression: Low back pain Qualifiers: Chronicity: acute Back pain laterality: right Sciatica presence: with sciatica Sciatica laterality: sciatica of right side Qualified Code(s): M54.41 - Lumbago with sciatica, right side Condition: Stable Critical Care Time: No Referrals: DASHAWN TURNER MD [Primary Care Provider] - Follow up other (Follow up with Dr Gomez (pain Management) for further treatment) Instructions: Low Back Pain (DC), Sciatica (DC) Additional Instructions: Discharge/Care Plan NIKKI ADAIR ElvaLAUREN was seen on 02/15/24 in the Emergency Room. The patient was counseled regarding Diagnosis,Lab results, Imaging studies, need for follow up and when to return to the Emergency Room. Prescriptions given: Discharge Note I have spoken with the patient and/or caregivers. I have explained the patient's condition, diagnosis and treatment plan based on the information available to me at this time. I have answered the patient's and/or caregiver's questions and addressed any concerns. The patient and/or caregivers have as good understanding of the patient's diagnosis, condition and treatment plan as can be expected at this point. The vital signs have been stable. The patient's condition is stable and appropriate for discharge from the emergency department. The patient will pursue further outpatient evaluation with the primary care physician or other designated or consulting physician as outlined in the discharge instructions. The patient and/or caregivers are agreeable to this plan of care and follow-up instructions have been explained in detail. The patient and/or caregivers have received these instruction. The patient/and or caregivers are aware that any significant change in condition or worsening of symptoms should prompt an immediate return to this or the closest emergency department or call 911. MANANIKKI NEVAREZ was seen on 02/15/24 n the Emergency Room. At that time you were treated for an emergent condition, during your visit Laboratory, Radiology and/or other procedures may have been ordered. It is very important that you follow-up with your Primary Care Physician DASHAWN TURNER within the next 24-48 hours to review your Emergency Room visit and the final results of testing that was ordered. Some test results such as Urine Cultures, Blood Cultures, and other cultures if ordered will not be finalized for 24-48 hours. If you do not have a Primary Care Provider please call the medical records department at [phone] ext [phone] to obtain a copy of your results or you may sign into our patient portal to obtain these results by visiting us @ [email or web address] and completing the following steps: 1. Click on the Patient Portal link 2. Click the Patient Self Enrollment Link to complete the enrollment form and entering your 3. Once the enrollment form is completed you will receive an email with a temporary ID and password at the email address you provided. 4. Next choose a user name and password. Your user name must be at least 4 characters long and your password must be at least 4 characters long. 5. Choose a security question from the list and provide your answer to the question. If you already have signed into the Health Portal you may access your Health Care Information 07/10 by the following steps: 1. Login to our website @ [email or web address] 2. Enter your original user name and password. FAQS The [facility] Health Portal is an online tool that contains your Lab Results, Radiology Reports, Visit History, Discharge Instructions and Health Summary Lab and Radiology Results will not be available for 72 hours on the portal. The Portal is a secure site, passwords are encryted and URLs are re-written so they cannot be copied and pasted. You and authorized family members are the only ones who can access your Portal. Also there is a timeout feature that protects your information if you leave the Portal page open. If you have technical difficulty please use the Contact Us link on the page this will allow you to submit any questions you have regarding the Portal or you may contact the Medical Record Department at [phone] ext [phone]. Prescriptions: Cyclobenzaprine HCl 10 mg [Flexeril 10 MG] 10 mg PO TID #30 tablet Ketorolac Trometh 10 mg Tab [TORAdol 10 MG TABLET] 10 mg PO QID #20 tablet
--- NOTE | 2024-02-15 12:35 | XRAY ---
CLINICAL HISTORY: sudden onset of low back pain COMPARISON: None. TECHNIQUE: CT non-contrast scan of lumbar spine done. Axial images were obtained with reformatted coronal and sagittal images and submitted for interpretation. One of the following dose reduction techniques were utilized for this exam: Automated exposure control, adjustment of the mA and/or kV according to patient size, and use of iterative reconstruction. DLP: 407.61 mGy-cm. FINDINGS: Vertebrae: Mild lumbar spondylodegenerative changes with anterolateral marginal osteophytosis. Mild 4 mm retrolisthesis of L4 over L5 No fractures, lytic or sclerotic lesions. Normal bone density without evidence of osteopenia or osteoporosis. Intervertebral Discs: Decreased height of L5-S1 intervertebral disc with irregular vertebral end plates. L4-L5 posterior disc bulge indenting theca and encroaching upon both exit foramina L5-S1 diffuse posterior disc bulge indenting theca and encroaching upon both exit foramina Facet Joints: L4-L5 and L5-S1 facet arthropathy. Soft Tissues: Normal appearance of the paraspinal soft tissues. Vascular atherosclerotic calcifications. Small right renal non-obstructing calculus. IMPRESSION: 1. Mild lumbar spondylodegenerative changes with anterolateral marginal osteophytosis. 2. Mild 4 mm retrolisthesis of L4 over L5. 3. L4-L5 posterior disc bulge indenting theca and encroaching upon both exit foramina. 4. L5-S1 diffuse posterior disc bulge indenting theca and encroaching upon both exit foramina. 5. L4-L5 and L5-S1 facet arthropathy. Electronically Signed by: Lalitha Price MD. (02/15/2024 12:30:54 EST)
[2024-02-15 13:16] VITALS: BP 116/82; PULSE 70
== END 2024-02-15 13:17 | disposition home or self-care (01) ==
LOC: ED 10:46
DX: M54.41 Lumbago with sciatica, right side (principal); X50.0XXA Overexertion from strenuous movement or load, initial encounter
CPT/HCPCS: 72131; 96372; 99283; 99284; J1885; J2360

== ENCOUNTER 2024-03-21 12:17 | Emergency (ER) | payer BC, OTHER ==
[2024-03-21 12:31] VITALS: RESP 18; TEMP 97.8
--- NOTE | 2024-03-21 12:41 | ERPHSYRPT ---
- History of Present Illness Time Seen by Provider: 03/21/24 12:36 Source: patient Exam Limitations: no limitations Patient Subjective Stated Complaint: aches, cough, runny nose, headache for 2 days Triage Nursing Assessment: pt alert, walked in, resp easy, no cough at present time, skin wpamp Physician History: The patient presents with sore throat, cough, and headache. Symptoms began on Friday night, two days prior to the encounter, with a sore throat, productive cough with yellow and green sputum, headache, and body aches. They experience shortness of breath and facial pain, particularly around the nose and left ear, described as feeling like 'somebody's stabbing me'. They felt feverish the previous night but did not measure their temperature due to lack of a thermometer. Additionally, they report pain in every joint of their body. Timing/Duration: day(s) (2) Cough Quality/Degree: moderate, productive cough Possible Cause: no prior episodes Modifying Factors: Improves With: nothing. Worsens With: coughing, deep breath Associated Symptoms: chills, cough, earache, facial pain, headache, muscle aches, nasal congestion, nasal drainage, No fever, No shortness of breath, No sore throat, No wheezing Allergies/Adverse Reactions: Penicillins Allergy (Mild, Verified 03/21/24 12:26) codeine Allergy (Verified 03/21/24 12:26) Home Medications: ARIPiprazole [Aripiprazole] 5 mg PO DAILY 03/21/24 [History] Clonazepam [Klonopin] 2 mg PO DAILY 03/21/24 [History] Gabapentin [Neurontin ] 300 mg PO BID 03/21/24 [History] Trazodone HCl 1 ea DAILY 03/21/24 [History] Hx Tetanus, Diphtheria Vaccination/Date Given: No Hx Influenza Vaccination/Date Given: No Hx Pneumococcal Vaccination/Date Given: No Immunizations Up to Date: Yes Travel Risk - International Travel Have you traveled outside of the country in past 3 weeks: No - Emerging Infectious Disease Are you exhibiting symptoms associated with any current EIDs: Yes Symptoms: Cough: New Onset - Review of Systems All Other Systems: Reviewed and Negative - Past Medical History Pertinent Past Medical History: Yes Neurological History: No Pertinent History ENT History: No Pertinent History Cardiac History: No Pertinent History Respiratory History: No Pertinent History Endocrine Medical History: No Pertinent History Musculoskeletal History: Degenerative Disk Disease GI Medical History: No Pertinent History History: No Pertinent History Psycho-Social History: Anxiety, Bipolar, Depression Male Reproductive Disorders: No Pertinent History, Prostate Problems Other Medical History: SCIATIC NERVE PAIN - Past Surgical History Past Surgical History: Yes Neuro Surgical History: No Pertinent History Cardiac: No Pertinent History Respiratory: No Pertinent History Gastrointestinal: No Pertinent History Genitourinary: No Pertinent History Musculoskeletal: Orthopedic Surgery Male Surgical History: No Pertinent History Other Surgical History: wrist, shoulder Significant Family History: no pertinent family hx - Social History Smoking Status: Former smoker How long have you smoked: 10 yrs Exposure to second hand smoke: No Drug Use: none Patient Lives Alone: No - Social Determinants of Health Will the patient participate in the screening: Declined to provide - Nursing Vital Signs Nursing Vital Signs: Initial Vital Signs Temperature 97.8 F 03/21/24 12:30 Pulse Rate 108 H 03/21/24 12:30 Respiratory Rate 18 03/21/24 12:30 Blood Pressure 120/89 03/21/24 12:30 O2 Sat by Pulse Oximetry 96 03/21/24 12:30 Pain Scale Pain Intensity 5 - Physical Exam General Appearance: no apparent distress Eye Exam: eyes nml inspection Ears, Nose, Throat Exam: TM abnormal (R) (dull, + light reflex, no erythema), TM abnormal (L) (dull, + light reflex, no erythema), pharyngeal erythema, No tonsillar exudate Neck Exam: normal inspection, supple, full range of motion, lymphadenopathy Respiratory Exam: normal breath sounds, lungs clear, airway intact, No respiratory distress Cardiovascular Exam: normal heart sounds, tachycardia, capillary refill <2 sec Gastrointestinal/Abdomen Exam: soft, No tenderness Neurologic Exam: alert, oriented x 3, cooperative Skin Exam: normal color, warm, dry, No rash SpO2 Interpretation: normal SpO2: 97 O2 Delivery: Room Air - Course Nursing assessment & vital signs reviewed: Yes Ordered Tests: Active Orders 24 hr Category Date Time Status CHEST 1 VIEW (PORTABLE) Stat Exams 03/21/24 12:58 Taken Medication Summary Generic Name Dose Route Start Last Admin Trade Name Freq PRN Reason Stop Dose Admin Sodium Chloride 1,000 mls @ 999 mls/hr 03/21/24 12:54 03/21/24 13:06 Sodium Chloride 0.9% 1000 Ml IV 03/21/24 13:54 999 mls/hr .Q1H1M STA Administration Discontinued Medications Generic Name Dose Route Start Last Admin Trade Name Stacey PRN Reason Stop Dose Admin Benzonatate 200 mg 03/21/24 12:35 03/21/24 12:45 Benzonatate 100 Mg Capsule PO 03/21/24 12:36 200 mg STAT ONE Administration Benzonatate Confirm 03/21/24 12:42 Benzonatate 100 Mg Capsule Administered 03/21/24 12:43 Dose 200 mg PO .STK-MED ONE Sodium Chloride Confirm 03/21/24 13:01 Sodium Chloride 0.9% 1000 Ml Administered 03/21/24 13:02 Dose 1,000 mls @ ud .ROUTE .STK-MED ONE Prednisone 60 mg 03/21/24 12:35 03/21/24 12:45 Prednisone 20 Mg Tablet PO 03/21/24 12:36 60 mg STAT ONE Administration Prednisone Confirm 03/21/24 12:42 Prednisone 20 Mg Tablet Administered 03/21/24 12:43 Dose 60 mg .ROUTE .STK-MED ONE Lab/Rad Data: Laboratory Results 03/21/24 Range/Units 12:37 Influenza Type A Ag NEGATIVE (NEGATIVE) Influenza Type B Ag NEGATIVE (NEGATIVE) RSV (PCR) NEGATIVE (NEGATIVE) SARS-CoV-2 (PCR) NEGATIVE (NEGATIVE) - Progress Progress: improved Air Movement: good Progress Note: 03/21/24 12:40 Upper respiratory tract infection Presents with symptoms indicative of a viral upper respiratory tract infection, including sore throat, cough, headache, facial pain, ear pain, and myalgia. Symptoms began on Friday night, with yellow and green sputum production and dyspnea. Ears appear dull, but bacterial infection is not suspected. - Test for Prednisone and Benzonatate - Order chest x-ray to rule out pneumonia. 03/21/24 13:34 CXR shows reticular pattern, HR elevated so 1L NS bolus given and HR dropped below 100. No need for abx at this time. COVID, Flu, RSV neg. Will DC home with Prednisone 20mg QD x 4 more days and Benzonatate TID as needed. Discussed return precautions. Blood Culture(s) Obtained: No Antibiotics given: No Counseled pt/family regarding: lab results, diagnosis, need for follow-up, rad results Medical Desision Making - Diagnostic Testing Diagnostic test were ordered, analyzed, and reviewed by me: Yes Radiological Interpretation: Interpreted by me - Risk of complications The pt has a mod risk of morbidity or mortality based on: Need for prescription drug management - Departure Departure Disposition: Home Clinical Impression: Viral upper respiratory tract infection with cough Condition: Good Critical Care Time: No Referrals: DASHAWN TURNER MD [Primary Care Provider] - Follow up/PCP as directed Instructions: Cough, Adult (DC) Prescriptions: Benzonatate 200 mg PO TID PRN 7 Days #21 cap PRN Reason: Cough predniSONE [Prednisone] 20 mg PO DAILY 4 Days #4 tablet
[2024-03-21] MEDS ORDERED: DELTASONE 20 MG ONE (12:42)
[2024-03-21] MEDS ORDERED: Tessalon Perles 100 MG PO ONE (12:42)
[2024-03-21] MEDS: Tessalon Perles 100 MG PO ONE (12:45)
[2024-03-21] MEDS: DELTASONE 20 MG PO ONE (12:45)
[2024-03-21] MEDS ORDERED: Sodium Chloride 0.9% 1000 ML 1,000 ML ONE (13:01)
[2024-03-21] MEDS: Sodium Chloride 0.9% 1000 ML 1,000 ML IV STA (13:06)
[2024-03-21 13:17] LABS: INFLUENZA A NEGATIVE (NEGATIVE); INFLUENZA B NEGATIVE (NEGATIVE); RESPIRATORY SYNCTIAL VIRUS NEGATIVE (NEGATIVE); SARS-CoV-2 Xpert Express NEGATIVE (NEGATIVE)
[2024-03-21 14:08] VITALS: BP 121/94; PULSE 100; O2SAT 97
--- NOTE | 2024-03-21 20:08 | XRAY ---
Indication: Cough. Comparison: October 22, 2021 Portable apical lordotic chest remains hyperinflated and clear again with a few tiny calcified granulomas. Heart not enlarged. Bony thorax intact. No new/acute findings.
== END 2024-03-21 14:16 | disposition home or self-care (01) ==
LOC: ED 12:17
DX: J06.9 Acute upper respiratory infection, unspecified (principal); R05.1 Acute cough; J02.9 Acute pharyngitis, unspecified; R51.9 Headache, unspecified; Z79.52 Long term (current) use of systemic steroids; Z79.899 Other long term (current) drug therapy
CPT/HCPCS: 0241U; 71045; 96360; 99284; A9270-GY

== ENCOUNTER 2024-04-21 12:32 | Day surgery (SDC) | payer BC, OTHER ==
[2024-04-21] MEDS ORDERED: Sodium Chloride 0.9(Preservative Free) 10 ML IJ ONE (12:33)
[2024-04-21] MEDS ORDERED: dexAMETHasone sodium phosphate IJ ONE (12:33)
[2024-04-21] MEDS ORDERED: propofoL IV ONE (13:57)
--- NOTE | 2024-04-21 14:49 | XRAY ---
Indication: Right L4-S1 transforaminal JORDON. Intraoperative fluoroscopy provided for 33 seconds. 5 digital spot image submitted for interpretation demonstrates posterior needle tips projecting over expected right L4 and L5 nerve roots. Small amount of contrast injected for needle tip placement. Correlate with intraoperative findings/report.
--- NOTE | 2024-04-21 15:00 | XRAY ---
33 seconds of fluoroscopy was used in surgery for a right L4-S1 transforaminal JORDON.
== END 2024-04-21 14:39 | disposition home or self-care (01) ==
LOC: SDC-PAIN 12:32
PROVIDERS: ATTEND Psychiatry & Neurology Pain Medicine
DX: M54.16 Radiculopathy, lumbar region (principal)
CPT/HCPCS: 72100; 77003; J1100; J2704

== ENCOUNTER 2024-06-12 09:26 | Emergency (ER) | payer BC, OTHER ==
[2024-06-12 09:35] VITALS: PULSE 108; TEMP 97.3; O2SAT 98
[2024-06-12] MEDS ORDERED: TORAdol 30 mg Injection ONE (09:49)
[2024-06-12] MEDS ORDERED: CLEOCIN 150 MG CAPSULE ONE (09:49)
[2024-06-12] MEDS: CLEOCIN 150 MG CAPSULE PO ONE (09:52)
[2024-06-12] MEDS: TORAdol 30 mg Injection IM ONE (09:52)
--- NOTE | 2024-06-12 09:54 | ERPHSYRPT ---
- History of Present Illness Time Seen by Provider: 06/12/24 09:40 Source: patient Exam Limitations: no limitations Patient Subjective Stated Complaint: pt c/o of upper left facial pain since yesterday and is unsure if it is a tooth or his sinuses Triage Nursing Assessment: Pt brought self to the ER, tachycardic, rates pain as 6/10, pulses normal, skin n/w/d, no noticable swelling, no difficulty breathing, denies chest pain, doesn't appear to be in any distress Physician History: 48yo m presents for left sided facial swelling and tooth pain x 2d. Pt reports he has a broken molar on the left upper mandible. Pt reports he attempted to get an appt w/ his dentist yesterday but was unable to be scheduled for 1wk. Pt denies any fevers, reports good oral intake, denies any purulent drainage from the effected area. Pt does endorse some left sided sinus pain and congestion w/ mild RAZA. Timing/Duration: yesterday Severity: moderate Associated Symptoms: headaches, No nausea, No vomiting, No abdominal pain, No fever Allergies/Adverse Reactions: Penicillins Allergy (Mild, Verified 06/12/24 09:35) codeine Allergy (Verified 06/12/24 09:35) Home Medications: ARIPiprazole [Aripiprazole] 5 mg PO DAILY 03/21/24 [History] Clonazepam [Klonopin] 1 mg PO BID 03/21/24 [History] Trazodone HCl 150 mg PO DAILY 03/21/24 [History] Tamsulosin HCl 0.4 mg [Flomax 0.4 MG] 0.4 mg PO DAILY 06/12/24 [History] Hx Tetanus, Diphtheria Vaccination/Date Given: No Hx Influenza Vaccination/Date Given: No Hx Pneumococcal Vaccination/Date Given: No Travel Risk - International Travel Have you traveled outside of the country in past 3 weeks: No - Emerging Infectious Disease Are you exhibiting symptoms associated with any current EIDs: No Symptoms: Cough: New Onset - Review of Systems Constitutional: No Fever, No Chills Eyes: No Eye Pain, No Eye Redness, No Photophobia, No Vision Changes, No Double Vision Ears, Nose, & Throat: Sinus Drainage, Mouth Pain, Mouth Swelling, No Ear Pain, No Throat Pain, No Throat Swelling, No Hoarse, No Painful Swallowing, No Stridor Respiratory: No Symptoms Cardiac: No Symptoms - Past Medical History Pertinent Past Medical History: Yes Neurological History: No Pertinent History ENT History: No Pertinent History Cardiac History: No Pertinent History Respiratory History: No Pertinent History Endocrine Medical History: No Pertinent History Musculoskeletal History: Degenerative Disk Disease GI Medical History: No Pertinent History History: No Pertinent History Psycho-Social History: Anxiety, Bipolar, Depression Male Reproductive Disorders: No Pertinent History, Prostate Problems Other Medical History: SCIATIC NERVE PAIN - Past Surgical History Past Surgical History: Yes Neuro Surgical History: No Pertinent History Cardiac: No Pertinent History Respiratory: No Pertinent History Gastrointestinal: No Pertinent History Genitourinary: No Pertinent History Musculoskeletal: Orthopedic Surgery Male Surgical History: No Pertinent History Other Surgical History: wrist, shoulder Significant Family History: no pertinent family hx - Social History Smoking Status: Current every day smoker How long have you smoked: 10 yrs Exposure to second hand smoke: Yes Drug Use: marijuana - Social Determinants of Health Will the patient participate in the screening: Yes Do you worry about a steady place to live?: No Do you have any problems with any of the following?: No known problems In the past 12 months,have you had to go without utilities?: No Transportation Issues: No Has anyone in your support network made you feel unsafe?: No Have you or anyone in your house had to go w/o enough food: No - Nursing Vital Signs Nursing Vital Signs: Initial Vital Signs Temperature 97.3 F 06/12/24 09:30 Pulse Rate 108 H 06/12/24 09:30 Blood Pressure 113/80 06/12/24 09:30 O2 Sat by Pulse Oximetry 98 06/12/24 09:30 Pain Scale Pain Intensity 6 - Physical Exam General Appearance: no apparent distress, alert Eye Exam: PERRL/EOMI, eyes nml inspection Ears, Nose, Throat Exam: TMs normal, pharynx normal, moist mucous membranes, other (left upper molar broken, no obvious nerve root exposure, swelling and erythema visible in left upper gum near broken tooth, no obvious abscess visible, TTP over left maxillary sinus), No pharyngeal erythema Neck Exam: normal inspection, non-tender, other (no crepitus) Respiratory Exam: airway intact, No respiratory distress Cardiovascular Exam: regular rate/rhythm SpO2 Interpretation: normal SpO2: 98 O2 Delivery: Room Air Ordered Tests: Medication Summary Discontinued Medications Generic Name Dose Route Start Last Admin Trade Name Stacey PRN Reason Stop Dose Admin Clindamycin HCl 300 mg 06/12/24 09:43 06/12/24 09:52 Clindamycin Hcl 150 Mg Capsule PO 06/12/24 09:44 300 mg STAT ONE Administration Clindamycin HCl Confirm 06/12/24 09:49 Clindamycin Hcl 150 Mg Capsule Administered 06/12/24 09:50 Dose 300 mg .ROUTE .STK-MED ONE Ketorolac Tromethamine 30 mg 06/12/24 09:41 06/12/24 09:52 Ketorolac Tromethamine 30 Mg/Ml Inj IM 06/12/24 09:42 30 mg STAT ONE Administration Ketorolac Tromethamine Confirm 06/12/24 09:49 Ketorolac Tromethamine 30 Mg/Ml Inj Administered 06/12/24 09:50 Dose 30 mg .ROUTE .STK-MED ONE - Progress Progress: improved, pain not gone completely Progress Note: 06/12/24 09:57 will give IM toradol for pain and clindamycin for coverage of sinusitis vs dental infection moderate improvement in pain following toradol injection plan for dc home w/ dentist follow up this week will send 7 day course of clindamycin to be taken every 6 hours recommend ice for swelling/discomfort, tylenol for pain no ibuprofen or NSAID medications for 24 hours return to ED if: develop blurry vision, develop fevers that don't respond to tylenol, develop pain or swelling in the neck, develop shortness of breath, develop difficulty swallowing Counseled pt/family regarding: diagnosis, need for follow-up Medical Desision Making - Risk of complications Minimal Risk: Minimal risk of morbidity - Departure Departure Disposition: Home Clinical Impression: Left facial pain Condition: Stable Critical Care Time: No Referrals: DASHAWN TURNER MD [Primary Care Provider] - Follow up/PCP as directed Additional Instructions: plan for dc home w/ dentist follow up this week will send 7 day course of clindamycin to be taken every 6 hours recommend ice for swelling/discomfort, tylenol for pain no ibuprofen or NSAID medications for 24 hours return to ED if: develop blurry vision, develop fevers that don't respond to tylenol, develop pain or swelling in the neck, develop shortness of breath, develop difficulty swallowing Prescriptions: clindamycin HCL [Clindamycin HCl] 300 mg PO Q6H 7 Days #27 cap
[2024-06-12 10:10] VITALS: BP 114/83
== END 2024-06-12 10:12 | disposition home or self-care (01) ==
LOC: ED 09:26
DX: R51.9 Headache, unspecified (principal); K08.89 Other specified disorders of teeth and supporting structures; Z79.899 Other long term (current) drug therapy; Z72.0 Tobacco use
CPT/HCPCS: 96372; 99283; J1885; A9270-GY